=== PATIENT | male | born 1955 | race Two or more races ===

== ENCOUNTER 2021-06-24 13:17 | Inpatient (IN) | payer MEDICARE, OTHER ==
[~2021-06-24] VITALS: Ht 172.7 cm; Wt 80.3 kg
[2021-06-24 13:15] VITALS: BP 166/85
[2021-06-24] MEDS ORDERED: PIPERACILLIN-TAZOB 3.375GM 100 ML IV ONE (13:30)
[2021-06-24] MEDS ORDERED: FUROSEMIDE 40 MG/4 ML VIAL IV ONE (13:30)
[2021-06-24 13:50] VITALS: BP 161/85
[2021-06-24 14:29] LABS: Basophils # (auto) 0.1 10 ^3/uL (0-0.2); Basophils % (auto) 0.7 % (0.0-2.0); Eosinophils # (auto) 0.1 10 ^3/uL (0-0.8); Eosinophils % (auto) 0.8 % (0.0-7.0); Hematocrit 36.6 % (41.0-53.0); Hemoglobin 12.4 g/dL (13.5-17.5); Mean Corpuscular Hemoglobin 32.2 pg (28.0-32.0); Mean Corpuscular Hgb Conc. 33.8 g/dL (32.0-36.0); Mean Corpuscular Volume 95.1 fL (80.0-100.0); Monocytes # (auto) 0.5 10 ^3/uL (0-1.3); Monocytes % (auto) 4.2 % (0.0-12.0); Neutrophils # (auto) 10.2 10 ^3/uL (1.6-8.6); Neutrophils % (auto) 86.3 % (37.0-80.0); Nucleated Red Blood Cells % 0.1 %; Red Blood Cells 3.84 10^6/uL (4.5-5.90); Red Cell Distribution Width 14.3 % (11.8-14.3); White Blood Cell 11.9 10^3/uL (4.4-10.8)
[2021-06-24 14:48] LABS: Albumin 3.7 g/dL (3.4-5.0); Anion Gap 8 (5-15); Blood Urea Nitrogen 33 mg/dL (7-18); Carbon Dioxide 28 mmol/L (21-32); Chloride 100 mmol/L (98-107); Glucose 170 mg/dL (74-106); Sodium 136 mmol/L (136-145)
[2021-06-24 14:54] LABS: Alanine Aminotransferase 35 U/L (16-61); Alkaline Phosphatase 139 U/L (45-117); Aspartate Aminotransferase 39 U/L (15-37); BUN/Creatinine Ratio 3.5; Bilirubin, Total 0.5 mg/dL (0.2-1.0); CRP High Sensitivity 0.43 mg/dL (< 0.3); GFR African American 7 mL/min; GFR Non-African American 6 mL/min; Total Protein 9.3 g/dL (6.4-8.2)
[2021-06-24 15:07] LABS: Potassium 5.7 mmol/L (3.5-5.1)
[2021-06-24] MEDS ORDERED: CALCIUM GLUC 1,000mg/50ml-NS 50 ML IV ONE (15:15)
[2021-06-24] MEDS ORDERED: InsuLIN REG 1unit/0.01ml Soln (100units/ml) IV ONE (15:15)
[2021-06-24] MEDS ORDERED: DEXTROSE (50%) 50ML SYRG IV ONE (15:15)
[2021-06-24] MEDS ORDERED: SODIUM BICARBONATE 8.4 % INJ 50ML VIAL IV ONE (15:15)
[2021-06-24] MEDS ORDERED: MORPHINE SULFATE INJECTION 2 MG/2 ML SYRG IV PRN ×2 (15:45→18:15)
[2021-06-24] MEDS ORDERED: NITROGLYCERIN 0.4 MG SL TAB SL PRN ×2 (15:45→18:15)
[2021-06-24] MEDS: FUROSEMIDE 100 MG/10ML VIAL IV ONE ×2 (15:54→18:25)
[2021-06-24 16:35] LABS: Urine Bacteria NONE SEEN /hpf (None Seen); Urine Blood 1+ /uL (Negative); Urine Mucus FEW (None Seen); Urine Specific Gravity 1.011 (1.001-1.035); Urine WBC 7 /hpf (0 - 3)
[2021-06-24] MEDS ORDERED: LACT10SO3 PO (17:22)
[2021-06-24] MEDS ORDERED: IPRA0.00 NEB (17:22)
[2021-06-24] MEDS ORDERED: FLUT115A INH (17:22)
[2021-06-24] MEDS ORDERED: FLUT1AER6 INH (17:22)
[2021-06-24] MEDS ORDERED: CLOP75TA70 PO (17:22)
[2021-06-24] MEDS ORDERED: FLUT50SP NAS (17:22)
[2021-06-24] MEDS ORDERED: B-COTAB59 PO (17:22)
[2021-06-24] MEDS ORDERED: GING250C PO (17:22)
[2021-06-24] MEDS ORDERED: FERR1TAB17 PO (17:22)
[2021-06-24] MEDS ORDERED: PRE5T PO (17:22)
[2021-06-24] MEDS ORDERED: OMEG1CAP59 PO (17:22)
[2021-06-24] MEDS ORDERED: ASPI-231 PO (17:22)
[2021-06-24] MEDS ORDERED: ALBU108A5 INH (17:22)
[2021-06-24] MEDS ORDERED: POM (17:44)
[2021-06-24] MEDS ORDERED: TURM500C3 PO (17:46)
[2021-06-24] MEDS ORDERED: DEXTROSE (50%) 50ML SYRG IV PRN (18:15)
[2021-06-24] MEDS ORDERED: ALUM & MAG HYDROX-SIMETH LIQ(MAALOX) 30 ML PO PRN (18:15)
[2021-06-24] MEDS ORDERED: LORazepam 0.5 MG TAB PO PRN (18:15)
[2021-06-24] MEDS ORDERED: ALBUTEROL SULF HFA 90MCG INH 200DOSE IN PRN (18:15)
[2021-06-24] MEDS ORDERED: DOCUSATE SOD 100 MG CAP PO PRN (18:15)
[2021-06-24] MEDS ORDERED: ONDANSETRON HCL 4 MG/2 ML VIAL IV PRN (18:15)
[2021-06-24 18:21] VITALS: BP 145/72
[2021-06-24] MEDS ORDERED: LORazepam 2MG/ML-1ML VIAL ONE (18:40)
[2021-06-24] MEDS ORDERED: MORPHINE SULFATE INJECTION 2 MG/2 ML SYRG IV ONE (18:45)
[2021-06-24] MEDS ORDERED: LORazepam 2MG/ML-1ML VIAL IV ONE (18:45)
[2021-06-24] MEDS ORDERED: ALBUTEROL SULF 2.5 MG/0.5ML(0.5%) NEB SOLN ONE (18:52)
[2021-06-24] MEDS ORDERED: IPRATROPIUM BROM 0.5 MG/2.5ML INH SOL ONE (18:52)
[2021-06-24] MEDS ORDERED: ETOMIDATE (2MG/ML) 20ML VIAL IV ONE ×2 (18:59→19:15)
[2021-06-24] MEDS ORDERED: SUCCINYLCHOLINE CHLORIDE 20 MG/ML 10ML VIAL IV ONE ×2 (18:59→19:15)
[2021-06-24] MEDS ORDERED: MIDAZOLAM DRIP 50 mg/50mL 50 ML IV ONE (18:59)
[2021-06-24] MEDS ORDERED: ENOXAPARIN SOD 60 MG/0.6 ML SYRINGE SC ONE (19:00)
[2021-06-24] MEDS ORDERED: ALBUTEROL SULF 2.5 MG/0.5ML(0.5%) NEB SOLN NEB ONE (19:00)
[2021-06-24 19:03] LABS: Cholesterol 182 mg/dL (< 200)
[2021-06-24 19:06] LABS: Calcium 7.8 mg/dL (8.5-10.1); HDL Cholesterol 82 mg/dL (40-59); LDL Cholesterol 79 mg/dL (< 100); Potassium 5.5 mmol/L (3.5-5.1); Triglycerides 120 mg/dL (< 150)
[2021-06-24] MEDS: MIDAZOLAM DRIP 50 mg/50mL 50 ML IV SCH (19:06)
[2021-06-24 19:09] LABS: BUN/Creatinine Ratio 3.7; Bilirubin, Total 0.5 mg/dL (0.2-1.0)
[2021-06-24 19:11] LABS: Alcohol, Urine < 3.0 mg/dL (0-10); Amphetamine Screen, Urine NEGATIVE (NEGATIVE); Barbiturate Scree,Urine NEGATIVE (NEGATIVE); Benzodiazephine Screen, Urine NEGATIVE (NEGATIVE); Cannabinoid Screen, Urine NEGATIVE (NEGATIVE); Cocaine Screen, Urine NEGATIVE (NEGATIVE); Opiate Scree,Urine NEGATIVE (NEGATIVE); Phencyclidine Screen, Urine NEGATIVE (NEGATIVE)
[2021-06-24 19:15] VITALS: BP 226/139
[2021-06-24 19:18] LABS: Thyroid Stimulating Hormone 1.23 uIU/mL (0.358-3.74)
[2021-06-24] MEDS ORDERED: fentaNYL Drip 2500mCg/250mlNS 250 ML IV ONE (19:20)
[2021-06-24] MEDS: fentaNYL Drip 2500mCg/250mlNS 250 ML IV SCH (19:39)
[2021-06-24 19:54] LABS: Basophils # (auto) 0.1 10 ^3/uL (0-0.2); Basophils % (auto) 0.6 % (0.0-2.0); Eosinophils # (auto) 0.1 10 ^3/uL (0-0.8); Eosinophils % (auto) 0.5 % (0.0-7.0); Hematocrit 37.2 % (41.0-53.0); Hemoglobin 12.4 g/dL (13.5-17.5); Lymphocytes # (auto) 0.7 10 ^3/uL (0.4-5.4); Lymphocytes % (auto) 5.8 % (10.0-50.0); Mean Corpuscular Hgb Conc. 33.4 g/dL (32.0-36.0); Mean Corpuscular Volume 95.7 fL (80.0-100.0); Monocytes # (auto) 0.6 10 ^3/uL (0-1.3); Monocytes % (auto) 5.1 % (0.0-12.0); Neutrophils # (auto) 10.5 10 ^3/uL (1.6-8.6); Red Blood Cells 3.89 10^6/uL (4.5-5.90); Red Cell Distribution Width 13.9 % (11.8-14.3); White Blood Cell 11.9 10^3/uL (4.4-10.8)
[2021-06-24] MEDS: MORPHINE SULFATE INJECTION 2 MG/2 ML SYRG IV PRN (20:11)
[2021-06-24 20:15] LABS: Lactic Acid w/Reflex 2.8 mmol/L (0.4-2.0)
[2021-06-24 21:45] VITALS: BP 117/58
[2021-06-24] MEDS ORDERED: IPRATROPIUM BROMIDE HFA AER IN SCH (22:00)
[2021-06-24] MEDS: InsuLIN REG 1unit/0.01ml Soln (100units/ml) SC SCH (22:00)
[2021-06-24] MEDS: FLORASTOR (S. BOULARDII) 250 MG CAP PO SCH (22:00)
[2021-06-24] MEDS ORDERED: BUDESONIDE (INHALATION) 180 MCG IH IN SCH (22:00)
[2021-06-24] MEDS: ACCU-CHEK COMFORT CURVE STRIP VI SCH (22:15)
[2021-06-24] MEDS: DOXYCYCLINE 100MG/250ML 250 ML IV SCH (22:16)
[2021-06-25] VITALS (83 sets, daily range): BP systolic 83–135; BP diastolic 45–70
[2021-06-25] MEDS ORDERED: SODIUM CHL 0.9% 1000 ML BAG XX ONE (00:15)
[2021-06-25] MEDS: MIDAZOLAM DRIP 50 mg/50mL 50 ML IV SCH (04:51)
[2021-06-25] MEDS: InsuLIN REG 1unit/0.01ml Soln (100units/ml) SC SCH ×4 (07:00→22:00)
[2021-06-25] MEDS: ACCU-CHEK COMFORT CURVE STRIP VI SCH ×4 (07:00→22:45)
[2021-06-25 08:22] LABS: Basophils # (auto) 0.1 10 ^3/uL (0-0.2); Basophils % (auto) 1.1 % (0.0-2.0); Eosinophils # (auto) 0.1 10 ^3/uL (0-0.8); Eosinophils % (auto) 0.9 % (0.0-7.0); Hematocrit 33.8 % (41.0-53.0); Hemoglobin 11.4 g/dL (13.5-17.5); Lymphocytes # (auto) 0.9 10 ^3/uL (0.4-5.4); Lymphocytes % (auto) 10.5 % (10.0-50.0); Mean Corpuscular Hemoglobin 32.5 pg (28.0-32.0); Mean Corpuscular Hgb Conc. 33.9 g/dL (32.0-36.0); Monocytes # (auto) 0.8 10 ^3/uL (0-1.3); Monocytes % (auto) 9.9 % (0.0-12.0); Neutrophils # (auto) 6.5 10 ^3/uL (1.6-8.6); Neutrophils % (auto) 77.6 % (37.0-80.0); Nucleated Red Blood Cells % 0.1 %; Red Blood Cells 3.52 10^6/uL (4.5-5.90); Red Cell Distribution Width 14.1 % (11.8-14.3); White Blood Cell 8.4 10^3/uL (4.4-10.8)
[2021-06-25 08:32] LABS: Albumin 2.9 g/dL (3.4-5.0); Calcium 7.9 mg/dL (8.5-10.1); Magnesium 3.3 mg/dL (1.6-2.6); Potassium 4.8 mmol/L (3.5-5.1)
[2021-06-25 08:37] LABS: BUN/Creatinine Ratio 3.1; Bilirubin, Total 0.6 mg/dL (0.2-1.0); Phosphorus 4.3 mg/dL (2.5-4.90); Total Protein 8.1 g/dL (6.4-8.2)
[2021-06-25 08:41] LABS: INR 1.08 (0.9-1.15); Partial Thromboplastin Time 26.5 sec (23.0-31.2)
[2021-06-25] MEDS: FLORASTOR (S. BOULARDII) 250 MG CAP PO SCH ×2 (09:45→22:43)
[2021-06-25] MEDS: fentaNYL Drip 2500mCg/250mlNS 250 ML IV SCH (09:45)
[2021-06-25] MEDS: DOXYCYCLINE 100MG/250ML 250 ML IV SCH ×2 (09:53→22:43)
[2021-06-25] MEDS ORDERED: ENOXAPARIN SOD 30 MG/0.3 ML SYRINGE SC SCH (10:00)
[2021-06-25] MEDS ORDERED: ASCORBIC ACID 1,000 MG TAB PO SCH (10:00)
[2021-06-25] MEDS ORDERED: ENOXAPARIN SOD 40 MG/0.4 ML SYRINGE SC SCH (10:00)
[2021-06-25] MEDS ORDERED: CHOLECALCIFEROL (VITD3) 2,000 UNIT CAP/TAB PO SCH (10:00)
[2021-06-25] MEDS ORDERED: ZINC SULFATE 220mg CAP or TAB PO SCH (10:00)
[2021-06-25] MEDS: HEPARIN SODIUM (PORCINE) 5000 UNITS/ML 1ML VIAL SC SCH ×2 (10:54→22:44)
[2021-06-25] MEDS: PROPOFOL 100 ML IV SCH ×2 (14:00→22:00)
[2021-06-26] VITALS (97 sets, daily range): BP systolic 98–197; BP diastolic 47–84
[2021-06-26] MEDS: ACCU-CHEK COMFORT CURVE STRIP VI SCH ×4 (07:00→21:43)
[2021-06-26] MEDS: InsuLIN REG 1unit/0.01ml Soln (100units/ml) SC SCH ×4 (07:00→21:43)
[2021-06-26] MEDS: HEPARIN SODIUM (PORCINE) 5000 UNITS/ML 1ML VIAL SC SCH ×2 (10:08→21:09)
[2021-06-26] MEDS: DOXYCYCLINE 100MG/250ML 250 ML IV SCH ×2 (10:09→21:07)
[2021-06-26] MEDS: FLORASTOR (S. BOULARDII) 250 MG CAP PO SCH ×2 (10:10→21:08)
[2021-06-26 10:25] LABS: Basophils # (auto) 0.1 10 ^3/uL (0-0.2); Basophils % (auto) 1.2 % (0.0-2.0); Eosinophils # (auto) 0.1 10 ^3/uL (0-0.8); Eosinophils % (auto) 0.8 % (0.0-7.0); Hematocrit 36.5 % (41.0-53.0); Hemoglobin 12.4 g/dL (13.5-17.5); Lymphocytes # (auto) 1.2 10 ^3/uL (0.4-5.4); Lymphocytes % (auto) 13.1 % (10.0-50.0); Mean Corpuscular Hemoglobin 32.3 pg (28.0-32.0); Mean Corpuscular Hgb Conc. 33.9 g/dL (32.0-36.0); Mean Corpuscular Volume 95.2 fL (80.0-100.0); Monocytes # (auto) 1.3 10 ^3/uL (0-1.3); Monocytes % (auto) 15.1 % (0.0-12.0); Neutrophils # (auto) 6.2 10 ^3/uL (1.6-8.6); Neutrophils % (auto) 69.8 % (37.0-80.0); Nucleated Red Blood Cells % 0.1 %; Red Blood Cells 3.83 10^6/uL (4.5-5.90); Red Cell Distribution Width 14.3 % (11.8-14.3); White Blood Cell 8.9 10^3/uL (4.4-10.8)
[2021-06-26 10:41] LABS: Albumin 2.5 g/dL (3.4-5.0); Calcium 8.3 mg/dL (8.5-10.1); Potassium 5.5 mmol/L (3.5-5.1)
[2021-06-26 10:45] LABS: BUN/Creatinine Ratio 3.4; Bilirubin, Total 0.6 mg/dL (0.2-1.0); Total Protein 7.6 g/dL (6.4-8.2)
[2021-06-26] MEDS: PROPOFOL 100 ML IV SCH (11:41)
[2021-06-26] MEDS: IPRATROPIUM BROM 0.5 MG/2.5ML INH SOL NEB PRN (18:17)
[2021-06-26] MEDS: ALBUTEROL SULF 2.5 MG/0.5ML(0.5%) NEB SOLN NEB PRN (18:17)
[2021-06-26] MEDS: MIDAZOLAM DRIP 50 mg/50mL 50 ML IV SCH (19:15)
[2021-06-26] MEDS: fentaNYL Drip 2500mCg/250mlNS 250 ML IV SCH (19:30)
[2021-06-26] MEDS: hydrALAZINE HCL 20 MG/ML VL IV PRN ×2 (20:12→23:51)
[2021-06-27] VITALS (70 sets, daily range): BP systolic 83–174; BP diastolic 20–102
[2021-06-27] MEDS: IPRATROPIUM BROM 0.5 MG/2.5ML INH SOL NEB PRN ×2 (00:11→18:27)
[2021-06-27] MEDS: ALBUTEROL SULF 2.5 MG/0.5ML(0.5%) NEB SOLN NEB PRN ×2 (00:11→18:27)
[2021-06-27] MEDS: hydrALAZINE HCL 20 MG/ML VL IV PRN (04:55)
[2021-06-27] MEDS: ACCU-CHEK COMFORT CURVE STRIP VI SCH ×4 (06:28→22:25)
[2021-06-27] MEDS: InsuLIN REG 1unit/0.01ml Soln (100units/ml) SC SCH ×4 (06:28→23:03)
[2021-06-27 06:38] LABS: Basophils # (auto) 0.1 10 ^3/uL (0-0.2); Basophils % (auto) 0.7 % (0.0-2.0); Eosinophils # (auto) 0 10 ^3/uL (0-0.8); Eosinophils % (auto) 0.1 % (0.0-7.0); Hematocrit 43.9 % (41.0-53.0); Hemoglobin 14.8 g/dL (13.5-17.5); Lymphocytes # (auto) 0.8 10 ^3/uL (0.4-5.4); Lymphocytes % (auto) 6.6 % (10.0-50.0); Mean Corpuscular Hemoglobin 32.6 pg (28.0-32.0); Mean Corpuscular Hgb Conc. 33.8 g/dL (32.0-36.0); Mean Corpuscular Volume 96.6 fL (80.0-100.0); Monocytes # (auto) 1.4 10 ^3/uL (0-1.3); Monocytes % (auto) 11.5 % (0.0-12.0); Neutrophils % (auto) 81.1 % (37.0-80.0); Nucleated Red Blood Cells % 0.1 %; Red Blood Cells 4.55 10^6/uL (4.5-5.90); Red Cell Distribution Width 14.1 % (11.8-14.3); White Blood Cell 12.3 10^3/uL (4.4-10.8)
[2021-06-27 06:58] LABS: Calcium 9.3 mg/dL (8.5-10.1)
[2021-06-27] MEDS ORDERED: SODIUM CHL 0.9% 1000 ML BAG XX ONE (07:00)
[2021-06-27 07:02] LABS: Albumin 3.3 g/dL (3.4-5.0); BUN/Creatinine Ratio 4.1; Total Protein 8.8 g/dL (6.4-8.2)
[2021-06-27 07:42] LABS: Potassium 5.6 mmol/L (3.5-5.1)
[2021-06-27] MEDS: PROPOFOL 100 ML IV SCH ×4 (07:58→22:36)
[2021-06-27] MEDS: FLORASTOR (S. BOULARDII) 250 MG CAP PO SCH ×2 (09:19→22:00)
[2021-06-27] MEDS: DOXYCYCLINE 100MG/250ML 250 ML IV SCH ×2 (09:50→22:24)
[2021-06-27] MEDS: HEPARIN SODIUM (PORCINE) 5000 UNITS/ML 1ML VIAL SC SCH ×3 (09:51→20:54)
[2021-06-27] MEDS ORDERED: NOREPINEPHRINE 8 MG/250ML KIT 250 ML IV ONE (10:45)
[2021-06-27] MEDS ORDERED: PANTOPRAZOLE 40 MG/10 ML VIAL INJ IV ONE (11:00)
[2021-06-27] MEDS: NOREPINEPHRINE 8 MG/250ML KIT 250 ML IV SCH (11:40)
[2021-06-27] MEDS ORDERED: DEXTROSE (50%) 50ML SYRG IV ONE (11:45)
[2021-06-27] MEDS ORDERED: CALCIUM GLUC 1,000mg/50ml-NS 50 ML IV ONE (11:45)
[2021-06-27] MEDS ORDERED: InsuLIN REG 1unit/0.01ml Soln (100units/ml) IV ONE (11:45)
[2021-06-27] MEDS ORDERED: CEFEPIME 1 GM in SODIUM CHL 0.9% 50 ML IV ONE (14:00)
[2021-06-27] MEDS ORDERED: LIDOCAINE 1% (LOCAL ANESTH.) PF 5ml SDV ID ONE (15:30)
[2021-06-27] MEDS: MIDAZOLAM DRIP 50 mg/50mL 50 ML IV SCH (19:15)
[2021-06-27] MEDS: fentaNYL Drip 2500mCg/250mlNS 250 ML IV SCH (19:30)
[2021-06-27] MEDS ORDERED: EPOETIN ALFA-EPBX 4,000 UNIT/ML VIAL SC ONE (21:00)
[2021-06-27] MEDS: SODIUM CHLOR 0.9% PF (SALINE LOCK) 10ML VIAL/SYR IV SCH (22:22)
[2021-06-27] MEDS: PANTOPRAZOLE 40 MG/10 ML VIAL INJ IV SCH (22:22)
[2021-06-28] VITALS (108 sets, daily range): BP systolic 90–173; BP diastolic 24–68
[2021-06-28] MEDS: NOREPINEPHRINE 8 MG/250ML KIT 250 ML IV SCH ×2 (01:28→11:01)
[2021-06-28 05:10] LABS: Albumin 2.5 g/dL (3.4-5.0); Calcium 8.8 mg/dL (8.5-10.1); Potassium 4.7 mmol/L (3.5-5.1)
[2021-06-28 05:13] LABS: BUN/Creatinine Ratio 4.3; Bilirubin, Total 0.8 mg/dL (0.2-1.0); Total Protein 7.9 g/dL (6.4-8.2)
[2021-06-28 05:25] LABS: Hematocrit 37.5 % (41.0-53.0); Hemoglobin 12.6 g/dL (13.5-17.5); Mean Corpuscular Hemoglobin 31.6 pg (28.0-32.0); Mean Corpuscular Hgb Conc. 33.4 g/dL (32.0-36.0); Mean Corpuscular Volume 94.6 fL (80.0-100.0); Red Blood Cells 3.97 10^6/uL (4.5-5.90); Red Cell Distribution Width 14.2 % (11.8-14.3); White Blood Cell 11.9 10^3/uL (4.4-10.8)
[2021-06-28 05:27] LABS: Band Neutrophils % (manual) 0; Basophils % (manual) 0 (0.0-2.0); Blast Cells 0; Eosinophils % (manual) 0 (0-7); Metamyelocytes % 0; Myelocytes % 0; Promyelocytes % 0; Reactive Lymphocytes 0
[2021-06-28] MEDS: ACCU-CHEK COMFORT CURVE STRIP VI SCH ×4 (06:31→22:00)
[2021-06-28] MEDS: InsuLIN REG 1unit/0.01ml Soln (100units/ml) SC SCH ×4 (06:31→22:00)
[2021-06-28 06:48] LABS: Lymphocytes % (manual) 24 (10.0-50.0); Monocytes % (manual) 14 (0-12)
[2021-06-28 08:01] LABS: INR 1.08 (0.9-1.15); Partial Thromboplastin Time 26.8 sec (23.0-31.2)
[2021-06-28] MEDS: PANTOPRAZOLE 40 MG/10 ML VIAL INJ IV SCH ×2 (10:17→22:00)
[2021-06-28] MEDS: SODIUM CHLOR 0.9% PF (SALINE LOCK) 10ML VIAL/SYR IV SCH ×2 (10:18→22:00)
[2021-06-28] MEDS: PROPOFOL 100 ML IV SCH ×2 (10:22→14:42)
[2021-06-28] MEDS: CEFEPIME 0.5 GM in SODIUM CHL 0.9% 50 ML IV SCH (11:35)
[2021-06-28] MEDS ORDERED: HEPARIN 1,000 UNITS/ml 1ML VIAL ONE (17:14)
[2021-06-28] MEDS: MIDAZOLAM DRIP 50 mg/50mL 50 ML IV SCH (19:15)
[2021-06-28] MEDS: fentaNYL Drip 2500mCg/250mlNS 250 ML IV SCH (19:30)
[2021-06-29] VITALS (70 sets, daily range): BP systolic 93–164; BP diastolic 26–79
[2021-06-29] MEDS: ACCU-CHEK COMFORT CURVE STRIP VI SCH ×3 (07:00→17:11)
[2021-06-29] MEDS: InsuLIN REG 1unit/0.01ml Soln (100units/ml) SC SCH ×4 (07:00→22:00)
[2021-06-29] MEDS ORDERED: SODIUM CHL 0.9% 1000 ML BAG XX ONE (07:00)
[2021-06-29 08:16] LABS: Basophils # (auto) 0.1 10 ^3/uL (0-0.2); Eosinophils # (auto) 0.3 10 ^3/uL (0-0.8); Eosinophils % (auto) 2.4 % (0.0-7.0); Hematocrit 36.6 % (41.0-53.0); Hemoglobin 12.5 g/dL (13.5-17.5); Lymphocytes # (auto) 1.4 10 ^3/uL (0.4-5.4); Lymphocytes % (auto) 13.4 % (10.0-50.0); Mean Corpuscular Hemoglobin 31.9 pg (28.0-32.0); Mean Corpuscular Volume 93.6 fL (80.0-100.0); Monocytes # (auto) 1.7 10 ^3/uL (0-1.3); Neutrophils # (auto) 6.9 10 ^3/uL (1.6-8.6); Neutrophils % (auto) 67.2 % (37.0-80.0); Red Blood Cells 3.91 10^6/uL (4.5-5.90); Red Cell Distribution Width 13.8 % (11.8-14.3); White Blood Cell 10.3 10^3/uL (4.4-10.8)
[2021-06-29 08:33] LABS: BUN/Creatinine Ratio 5.4; Calcium 9.1 mg/dL (8.5-10.1); Potassium 5.3 mmol/L (3.5-5.1)
[2021-06-29] MEDS: NOREPINEPHRINE 8 MG/250ML KIT 250 ML IV SCH (10:20)
[2021-06-29] MEDS: PANTOPRAZOLE 40 MG/10 ML VIAL INJ IV SCH (12:59)
[2021-06-29] MEDS: CEFEPIME 0.5 GM in SODIUM CHL 0.9% 50 ML IV SCH (13:11)
[2021-06-29] MEDS: SODIUM CHLOR 0.9% PF (SALINE LOCK) 10ML VIAL/SYR IV SCH (13:12)
[2021-06-29] MEDS ORDERED: SODIUM CHLORIDE 0.9% 500 ML IV ONE (14:00)
[2021-06-29] MEDS ORDERED: Nepro With Carb Steady 1 Liter Bottle GT SCH (15:30)
[2021-06-29] MEDS: MIDAZOLAM DRIP 50 mg/50mL 50 ML IV SCH (19:15)
[2021-06-29] MEDS: fentaNYL Drip 2500mCg/250mlNS 250 ML IV SCH (19:30)
[2021-06-30] VITALS (12 sets, daily range): BP systolic 102–177; BP diastolic 35–68
[2021-06-30] MEDS: ACCU-CHEK COMFORT CURVE STRIP VI SCH ×4 (07:00→17:41)
[2021-06-30] MEDS: InsuLIN REG 1unit/0.01ml Soln (100units/ml) SC SCH ×3 (07:00→17:00)
[2021-06-30] MEDS: hydrALAZINE HCL 20 MG/ML VL IV PRN ×3 (09:50→23:39)
[2021-06-30 10:37] LABS: Hematocrit 39.2 % (41.0-53.0); Hemoglobin 13.3 g/dL (13.5-17.5); Mean Corpuscular Hemoglobin 32.9 pg (28.0-32.0); Mean Corpuscular Volume 96.8 fL (80.0-100.0); Red Blood Cells 4.05 10^6/uL (4.5-5.90); Red Cell Distribution Width 14.5 % (11.8-14.3); White Blood Cell 9.9 10^3/uL (4.4-10.8)
[2021-06-30 10:41] LABS: Albumin 2.6 g/dL (3.4-5.0); Calcium 9.6 mg/dL (8.5-10.1)
[2021-06-30 10:46] LABS: BUN/Creatinine Ratio 5.9; Bilirubin, Total 1.3 mg/dL (0.2-1.0)
[2021-06-30 10:56] LABS: Basophils % (manual) 0 (0.0-2.0); Blast Cells 0; Metamyelocytes % 0; Myelocytes % 0; Promyelocytes % 0; Reactive Lymphocytes 0
[2021-06-30 11:41] LABS: Band Neutrophils % (manual) 2; Eosinophils % (manual) 1 (0-7); Lymphocytes % (manual) 32 (10.0-50.0); Monocytes % (manual) 5 (0-12)
[2021-06-30] MEDS: NOREPINEPHRINE 8 MG/250ML KIT 250 ML IV SCH (11:45)
[2021-06-30] MEDS: CEFEPIME 0.5 GM in SODIUM CHL 0.9% 50 ML IV SCH (12:00)
[2021-06-30] MEDS: PROPOFOL 100 ML IV SCH (12:45)
[2021-06-30] MEDS: PANTOPRAZOLE 40 MG/10 ML VIAL INJ IV SCH ×2 (14:32→17:41)
[2021-06-30] MEDS: ALBUTEROL SULF 2.5 MG/0.5ML(0.5%) NEB SOLN NEB PRN (18:20)
[2021-06-30] MEDS: IPRATROPIUM BROM 0.5 MG/2.5ML INH SOL NEB PRN (18:20)
[2021-06-30] MEDS ORDERED: EPINEPHrine HCL 0.5 ML NEB NEB ONE (18:30)
[2021-06-30] MEDS ORDERED: EPINEPHrine HCL 0.5 ML NEB ONE (18:32)
[2021-06-30] MEDS: MIDAZOLAM DRIP 50 mg/50mL 50 ML IV SCH (19:15)
[2021-06-30] MEDS: MORPHINE SULFATE INJECTION 2 MG/2 ML SYRG IV PRN (19:54)
[2021-06-30] MEDS: SODIUM CHLOR 0.9% PF (SALINE LOCK) 10ML VIAL/SYR IV SCH (22:00)
[2021-07-01] VITALS (35 sets, daily range): BP systolic 100–192; BP diastolic 32–78
[2021-07-01] MEDS: PANTOPRAZOLE 40 MG/10 ML VIAL INJ IV SCH ×3 (00:08→21:45)
[2021-07-01] MEDS: ACCU-CHEK COMFORT CURVE STRIP VI SCH ×5 (00:08→22:00)
[2021-07-01] MEDS: SODIUM CHLOR 0.9% PF (SALINE LOCK) 10ML VIAL/SYR IV SCH ×3 (00:08→22:00)
[2021-07-01] MEDS: InsuLIN REG 1unit/0.01ml Soln (100units/ml) SC SCH ×5 (00:09→22:00)
[2021-07-01] MEDS: ALBUTEROL SULF 2.5 MG/0.5ML(0.5%) NEB SOLN NEB PRN (00:15)
[2021-07-01] MEDS: IPRATROPIUM BROM 0.5 MG/2.5ML INH SOL NEB PRN (00:15)
[2021-07-01] MEDS: MORPHINE SULFATE INJECTION 2 MG/2 ML SYRG IV PRN (02:44)
[2021-07-01] MEDS: hydrALAZINE HCL 20 MG/ML VL IV PRN ×3 (02:45→23:32)
[2021-07-01 04:34] LABS: Basophils # (auto) 0.1 10 ^3/uL (0-0.2); Basophils % (auto) 0.7 % (0.0-2.0); Eosinophils # (auto) 0 10 ^3/uL (0-0.8); Eosinophils % (auto) 0.4 % (0.0-7.0); Hematocrit 39.2 % (41.0-53.0); Hemoglobin 13.2 g/dL (13.5-17.5); Lymphocytes % (auto) 8.5 % (10.0-50.0); Mean Corpuscular Hemoglobin 32.1 pg (28.0-32.0); Mean Corpuscular Hgb Conc. 33.6 g/dL (32.0-36.0); Mean Corpuscular Volume 95.5 fL (80.0-100.0); Monocytes % (auto) 17.5 % (0.0-12.0); Neutrophils # (auto) 8.2 10 ^3/uL (1.6-8.6); Neutrophils % (auto) 72.9 % (37.0-80.0); Red Cell Distribution Width 14.1 % (11.8-14.3); White Blood Cell 11.3 10^3/uL (4.4-10.8)
[2021-07-01 05:11] LABS: Albumin 2.7 g/dL (3.4-5.0); Calcium 9.9 mg/dL (8.5-10.1); Potassium 5.4 mmol/L (3.5-5.1)
[2021-07-01 05:16] LABS: BUN/Creatinine Ratio 6.8; Bilirubin, Total 1.2 mg/dL (0.2-1.0); Total Protein 8.9 g/dL (6.4-8.2)
[2021-07-01] MEDS: IPRATROPIUM BROM 0.5 MG/2.5ML INH SOL NEB SCH ×3 (06:19→18:48)
[2021-07-01] MEDS: ALBUTEROL SULF 2.5 MG/0.5ML(0.5%) NEB SOLN NEB SCH ×3 (06:19→18:48)
[2021-07-01] MEDS ORDERED: SODIUM CHL 0.9% 1000 ML BAG XX ONE (07:00)
[2021-07-01] MEDS ORDERED: METOPROLOL TARTRATE 1MG/1ML-5ML VIAL IV ONE ×3 (09:54→15:30)
[2021-07-01] MEDS: METOPROLOL TARTRATE 50 MG TAB PO SCH ×2 (10:30→21:46)
[2021-07-01] MEDS: NOREPINEPHRINE 8 MG/250ML KIT 250 ML IV SCH (11:45)
[2021-07-01] MEDS: PROPOFOL 100 ML IV SCH (12:45)
[2021-07-01] MEDS: ALBUMIN 25% 100 ML IV SCH ×2 (14:45→21:47)
[2021-07-01] MEDS: CEFEPIME 0.5 GM in SODIUM CHL 0.9% 50 ML IV SCH (15:07)
[2021-07-01] MEDS: MIDAZOLAM DRIP 50 mg/50mL 50 ML IV SCH (19:15)
[2021-07-02] VITALS (13 sets, daily range): BP systolic 111–171; BP diastolic 44–78
[2021-07-02] MEDS: IPRATROPIUM BROM 0.5 MG/2.5ML INH SOL NEB SCH ×4 (00:38→18:04)
[2021-07-02] MEDS: ALBUTEROL SULF 2.5 MG/0.5ML(0.5%) NEB SOLN NEB SCH ×4 (00:38→18:04)
[2021-07-02 04:34] LABS: Basophils # (auto) 0.1 10 ^3/uL (0-0.2); Basophils % (auto) 0.8 % (0.0-2.0); Eosinophils # (auto) 0.1 10 ^3/uL (0-0.8); Eosinophils % (auto) 0.9 % (0.0-7.0); Hematocrit 34.7 % (41.0-53.0); Hemoglobin 11.5 g/dL (13.5-17.5); Lymphocytes # (auto) 0.6 10 ^3/uL (0.4-5.4); Lymphocytes % (auto) 6.2 % (10.0-50.0); Mean Corpuscular Hemoglobin 31.7 pg (28.0-32.0); Monocytes # (auto) 1.4 10 ^3/uL (0-1.3); Monocytes % (auto) 14.5 % (0.0-12.0); Neutrophils # (auto) 7.7 10 ^3/uL (1.6-8.6); Neutrophils % (auto) 77.6 % (37.0-80.0); Nucleated Red Blood Cells % 0.1 %; Red Blood Cells 3.62 10^6/uL (4.5-5.90); Red Cell Distribution Width 13.8 % (11.8-14.3); White Blood Cell 9.9 10^3/uL (4.4-10.8)
[2021-07-02 05:04] LABS: Potassium 4.9 mmol/L (3.5-5.1)
[2021-07-02 05:14] LABS: Albumin 2.8 g/dL (3.4-5.0); BUN/Creatinine Ratio 7.1; Calcium 9.1 mg/dL (8.5-10.1)
[2021-07-02 05:16] LABS: Bilirubin, Total 1.1 mg/dL (0.2-1.0); Total Protein 7.7 g/dL (6.4-8.2)
[2021-07-02] MEDS: ALBUMIN 25% 100 ML IV SCH (06:21)
[2021-07-02] MEDS: InsuLIN REG 1unit/0.01ml Soln (100units/ml) SC SCH ×4 (07:00→21:09)
[2021-07-02] MEDS: ACCU-CHEK COMFORT CURVE STRIP VI SCH ×4 (07:27→21:09)
[2021-07-02] MEDS: METOPROLOL TARTRATE 50 MG TAB PO SCH ×2 (10:05→21:15)
[2021-07-02] MEDS: SODIUM CHLOR 0.9% PF (SALINE LOCK) 10ML VIAL/SYR IV SCH ×2 (10:05→21:15)
[2021-07-02] MEDS: PANTOPRAZOLE 40 MG/10 ML VIAL INJ IV SCH ×2 (10:05→21:14)
[2021-07-02] MEDS: ASPirin 81 mg TAB PO SCH (10:06)
[2021-07-02] MEDS: CEFEPIME 0.5 GM in SODIUM CHL 0.9% 50 ML IV SCH (14:10)
[2021-07-02] MEDS: AURYXIA 210MG PO SCH (17:42)
[2021-07-02] MEDS: HYDROcodone-ACET 5/325MG TAB PO PRN (21:15)
[2021-07-02] MEDS: ATORVASTATIN 20 MG TAB PO SCH (21:15)
[2021-07-02] MEDS: MORPHINE SULFATE INJECTION 2 MG/2 ML SYRG IV PRN (23:14)
[2021-07-03] VITALS (7 sets, daily range): BP systolic 102–149; BP diastolic 51–84
[2021-07-03] MEDS: IPRATROPIUM BROM 0.5 MG/2.5ML INH SOL NEB SCH ×4 (00:16→18:24)
[2021-07-03] MEDS: ALBUTEROL SULF 2.5 MG/0.5ML(0.5%) NEB SOLN NEB SCH ×4 (00:16→18:24)
[2021-07-03] MEDS: MORPHINE SULFATE INJECTION 2 MG/2 ML SYRG IV PRN ×3 (03:39→15:00)
[2021-07-03 05:44] LABS: Basophils # (auto) 0.1 10 ^3/uL (0-0.2); Basophils % (auto) 0.7 % (0.0-2.0); Eosinophils # (auto) 0.2 10 ^3/uL (0-0.8); Eosinophils % (auto) 1.7 % (0.0-7.0); Hematocrit 35.1 % (41.0-53.0); Hemoglobin 11.9 g/dL (13.5-17.5); Lymphocytes # (auto) 1.1 10 ^3/uL (0.4-5.4); Lymphocytes % (auto) 11.8 % (10.0-50.0); Mean Corpuscular Hemoglobin 32.4 pg (28.0-32.0); Mean Corpuscular Hgb Conc. 33.9 g/dL (32.0-36.0); Mean Corpuscular Volume 95.5 fL (80.0-100.0); Monocytes # (auto) 1.5 10 ^3/uL (0-1.3); Monocytes % (auto) 16.6 % (0.0-12.0); Neutrophils # (auto) 6.5 10 ^3/uL (1.6-8.6); Neutrophils % (auto) 69.2 % (37.0-80.0); Nucleated Red Blood Cells % 0.1 %; Red Blood Cells 3.68 10^6/uL (4.5-5.90); White Blood Cell 9.3 10^3/uL (4.4-10.8)
[2021-07-03 06:02] LABS: Potassium 4.6 mmol/L (3.5-5.1)
[2021-07-03] MEDS: InsuLIN REG 1unit/0.01ml Soln (100units/ml) SC SCH ×4 (06:03→21:55)
[2021-07-03] MEDS: ACCU-CHEK COMFORT CURVE STRIP VI SCH ×4 (06:03→21:55)
[2021-07-03 06:15] LABS: BUN/Creatinine Ratio 7.8; Bilirubin, Total 0.9 mg/dL (0.2-1.0); Calcium 9.7 mg/dL (8.5-10.1); Total Protein 8.2 g/dL (6.4-8.2)
[2021-07-03] MEDS: AURYXIA 210MG PO SCH ×3 (08:40→18:03)
[2021-07-03] MEDS: PANTOPRAZOLE 40 MG/10 ML VIAL INJ IV SCH ×2 (08:54→21:48)
[2021-07-03] MEDS: ASPirin 81 mg TAB PO SCH (08:57)
[2021-07-03] MEDS: METOPROLOL TARTRATE 50 MG TAB PO SCH ×2 (09:08→21:49)
[2021-07-03] MEDS: SODIUM CHLOR 0.9% PF (SALINE LOCK) 10ML VIAL/SYR IV SCH ×2 (09:12→21:49)
[2021-07-03] MEDS ORDERED: diphenhdrAMINE HCL 50 MG/1 ML VL IV PRN (10:30)
[2021-07-03] MEDS: HYDROcodone-ACET 5/325MG TAB PO PRN (12:58)
[2021-07-03] MEDS: CEFEPIME 0.5 GM in SODIUM CHL 0.9% 50 ML IV SCH (14:50)
[2021-07-03 20:32] LABS: Urine Bacteria NONE SEEN /hpf (None Seen); Urine Blood TRACE /uL (Negative); Urine Specific Gravity 1.012 (1.001-1.035); Urine WBC 2 /hpf (0 - 3)
[2021-07-03] MEDS: ATORVASTATIN 20 MG TAB PO SCH (21:49)
[2021-07-03] MEDS ORDERED: predniSONE 20 MG TAB PO ONE (22:00)
[2021-07-04] MEDS: ALBUTEROL SULF 2.5 MG/0.5ML(0.5%) NEB SOLN NEB SCH ×4 (00:24→18:59)
[2021-07-04] MEDS: IPRATROPIUM BROM 0.5 MG/2.5ML INH SOL NEB SCH ×4 (00:24→18:58)
[2021-07-04 05:00] VITALS: BP 131/111
[2021-07-04] MEDS ORDERED: predniSONE 20 MG TAB PO ONE ×2 (05:00→20:00)
[2021-07-04 06:00] LABS: Hemoglobin 11.3 g/dL (13.5-17.5); Mean Corpuscular Hemoglobin 31.8 pg (28.0-32.0); Mean Corpuscular Hgb Conc. 34.1 g/dL (32.0-36.0); Mean Corpuscular Volume 93.3 fL (80.0-100.0); Red Blood Cells 3.54 10^6/uL (4.5-5.90); Red Cell Distribution Width 13.7 % (11.8-14.3); White Blood Cell 10.4 10^3/uL (4.4-10.8)
[2021-07-04] MEDS: ACCU-CHEK COMFORT CURVE STRIP VI SCH ×4 (06:16→21:14)
[2021-07-04] MEDS: InsuLIN REG 1unit/0.01ml Soln (100units/ml) SC SCH ×4 (06:16→21:14)
[2021-07-04 06:20] LABS: INR 1.08 (0.9-1.15)
[2021-07-04 06:33] LABS: Band Neutrophils % (manual) 0; Basophils % (manual) 0 (0.0-2.0); Blast Cells 0; Metamyelocytes % 0; Myelocytes % 0; Promyelocytes % 0; Reactive Lymphocytes 0
[2021-07-04] MEDS ORDERED: SODIUM CHL 0.9% 1000 ML BAG XX ONE (07:00)
[2021-07-04 07:07] LABS: Albumin 2.5 g/dL (3.4-5.0); Calcium 9.3 mg/dL (8.5-10.1); Potassium 5.1 mmol/L (3.5-5.1)
[2021-07-04 07:10] LABS: Bilirubin, Total 0.8 mg/dL (0.2-1.0); Total Protein 7.7 g/dL (6.4-8.2)
[2021-07-04 07:32] LABS: Eosinophils % (manual) 3 (0-7); Lymphocytes % (manual) 7 (10.0-50.0); Monocytes % (manual) 18 (0-12)
[2021-07-04 09:00] VITALS: BP 97/37
[2021-07-04] MEDS: SODIUM CHLOR 0.9% PF (SALINE LOCK) 10ML VIAL/SYR IV SCH ×2 (10:00→21:14)
[2021-07-04] MEDS: ASPirin 81 mg TAB PO SCH (11:29)
[2021-07-04] MEDS: PANTOPRAZOLE 40 MG/10 ML VIAL INJ IV SCH ×2 (11:30→21:10)
[2021-07-04] MEDS: AURYXIA 210MG PO SCH ×3 (11:30→18:20)
[2021-07-04] MEDS: METOPROLOL TARTRATE 50 MG TAB PO SCH ×2 (11:30→21:12)
[2021-07-04 12:47] VITALS: BP 118/65
[2021-07-04 14:59] LABS: Hepatitis A Ab IgM Negative; Hepatitis B Core IgM Negative; Hepatitis B Surface Antigen Negative (Negative)
[2021-07-04 15:01] LABS: Hepatitis C Antibody Positive (Negative)
[2021-07-04 16:57] VITALS: BP 110/42
[2021-07-04] MEDS: CEFEPIME 0.5 GM in SODIUM CHL 0.9% 50 ML IV SCH (18:14)
[2021-07-04] MEDS: ATORVASTATIN 20 MG TAB PO SCH (21:11)
[2021-07-04] MEDS: MORPHINE SULFATE INJECTION 2 MG/2 ML SYRG IV PRN (21:11)
[2021-07-04 21:34] VITALS: BP 167/68
[2021-07-05] MEDS: ALBUTEROL SULF 2.5 MG/0.5ML(0.5%) NEB SOLN NEB SCH ×4 (00:04→19:01)
[2021-07-05] MEDS: IPRATROPIUM BROM 0.5 MG/2.5ML INH SOL NEB SCH ×4 (00:04→19:01)
[2021-07-05 04:51] VITALS: BP 125/84
[2021-07-05] MEDS ORDERED: predniSONE 20 MG TAB PO ONE (05:00)
[2021-07-05] MEDS: ACCU-CHEK COMFORT CURVE STRIP VI SCH ×4 (05:56→21:46)
[2021-07-05] MEDS: InsuLIN REG 1unit/0.01ml Soln (100units/ml) SC SCH ×4 (05:59→21:46)
[2021-07-05 06:10] LABS: Basophils # (auto) 0 10 ^3/uL (0-0.2); Basophils % (auto) 0.2 % (0.0-2.0); Eosinophils # (auto) 0 10 ^3/uL (0-0.8); Hematocrit 30.8 % (41.0-53.0); Hemoglobin 10.6 g/dL (13.5-17.5); Lymphocytes # (auto) 0.5 10 ^3/uL (0.4-5.4); Lymphocytes % (auto) 4.8 % (10.0-50.0); Mean Corpuscular Hemoglobin 31.9 pg (28.0-32.0); Mean Corpuscular Hgb Conc. 34.3 g/dL (32.0-36.0); Monocytes # (auto) 0.7 10 ^3/uL (0-1.3); Monocytes % (auto) 7.8 % (0.0-12.0); Neutrophils # (auto) 8.3 10 ^3/uL (1.6-8.6); Neutrophils % (auto) 87.2 % (37.0-80.0); Red Blood Cells 3.31 10^6/uL (4.5-5.90); Red Cell Distribution Width 13.8 % (11.8-14.3); White Blood Cell 9.5 10^3/uL (4.4-10.8)
[2021-07-05 06:26] LABS: Albumin 2.4 g/dL (3.4-5.0); BUN/Creatinine Ratio 8.3; Bilirubin, Total 0.6 mg/dL (0.2-1.0); Calcium 9.6 mg/dL (8.5-10.1); Total Protein 7.4 g/dL (6.4-8.2)
[2021-07-05] MEDS ORDERED: LIDOCAINE 2%HCL (LOCAL ANESTH.) INJ 20ML MDV ONE (07:49)
[2021-07-05] MEDS ORDERED: IODIXANOL 320MG/ML 100ML BTL IV ONE ×2 (07:49→08:44)
[2021-07-05] MEDS ORDERED: HEPARIN IN NS 1000Units/500mL 1,500 ML ONE (07:50)
[2021-07-05] MEDS: AURYXIA 210MG PO SCH ×3 (07:54→17:54)
[2021-07-05] MEDS ORDERED: ANGIOMAX 250 MG VIAL IV ONE (08:08)
[2021-07-05] MEDS ORDERED: fentaNYL CITRATE 100 MCG/2 ML VL ONE (08:08)
[2021-07-05] MEDS ORDERED: SODIUM CHL 0.9% 50 ML ONE ×2 (08:09→08:44)
[2021-07-05] MEDS ORDERED: MIDAZOLAM HCL 2MG/2ML 2ml VIAL (1mg/ml) ONE (08:09)
[2021-07-05] MEDS ORDERED: diphenhdrAMINE HCL 50 MG/1 ML VL ONE (08:18)
[2021-07-05] MEDS ORDERED: methylPREDNISolone SOD SUCC 125 MG/2 ML VL ONE (08:18)
[2021-07-05] MEDS ORDERED: FAMOTIDINE (10MG/ML) 2ML VL IV ONE (08:20)
[2021-07-05] MEDS ORDERED: NITROGLYCERIN 5MG/ML 10ML VIAL IV ONE (08:44)
[2021-07-05 09:00] VITALS: BP 104/57
[2021-07-05] MEDS ORDERED: VERAPAMIL 2.5MG/ML INJ 2ML VIAL IV ONE (09:03)
[2021-07-05] MEDS: METOPROLOL TARTRATE 50 MG TAB PO SCH ×2 (10:00→21:47)
[2021-07-05] MEDS: ASPirin 81 mg TAB PO SCH (10:00)
[2021-07-05] MEDS: PANTOPRAZOLE 40 MG/10 ML VIAL INJ IV SCH ×2 (10:34→21:45)
[2021-07-05] MEDS: SODIUM CHLOR 0.9% PF (SALINE LOCK) 10ML VIAL/SYR IV SCH ×2 (10:34→21:45)
[2021-07-05] MEDS: CEFEPIME 0.5 GM in SODIUM CHL 0.9% 50 ML IV SCH (12:39)
[2021-07-05 12:41] VITALS: BP 152/54
[2021-07-05 17:00] VITALS: BP 154/53
[2021-07-05] MEDS: hydrALAZINE HCL 20 MG/ML VL IV PRN (17:00)
[2021-07-05] MEDS: ATORVASTATIN 20 MG TAB PO SCH (21:45)
[2021-07-05 21:53] VITALS: BP 135/48
[2021-07-06] MEDS: IPRATROPIUM BROM 0.5 MG/2.5ML INH SOL NEB SCH ×4 (03:50→19:05)
[2021-07-06] MEDS: ALBUTEROL SULF 2.5 MG/0.5ML(0.5%) NEB SOLN NEB SCH ×4 (03:51→19:05)
[2021-07-06 05:48] VITALS: BP 152/103
[2021-07-06] MEDS: InsuLIN REG 1unit/0.01ml Soln (100units/ml) SC SCH ×4 (06:39→21:25)
[2021-07-06] MEDS: ACCU-CHEK COMFORT CURVE STRIP VI SCH ×4 (06:43→21:53)
[2021-07-06] MEDS ORDERED: SODIUM CHL 0.9% 1000 ML BAG XX ONE (07:00)
[2021-07-06] MEDS ORDERED: ceFAZolin 1GM/50ML 100 ML IV ONE (07:20)
[2021-07-06 09:00] VITALS: BP 148/73
[2021-07-06] MEDS: SODIUM CHLOR 0.9% PF (SALINE LOCK) 10ML VIAL/SYR IV SCH ×2 (09:36→21:51)
[2021-07-06] MEDS: PANTOPRAZOLE 40 MG/10 ML VIAL INJ IV SCH ×2 (12:11→21:50)
[2021-07-06] MEDS: ASPirin 81 mg TAB PO SCH (12:11)
[2021-07-06] MEDS: METOPROLOL TARTRATE 50 MG TAB PO SCH ×2 (12:12→21:52)
[2021-07-06] MEDS: CEFEPIME 0.5 GM in SODIUM CHL 0.9% 50 ML IV SCH (12:17)
[2021-07-06] MEDS: AURYXIA 210MG PO SCH ×3 (12:17→18:00)
[2021-07-06 13:00] VITALS: BP 144/68
[2021-07-06 16:27] VITALS: BP 141/66
[2021-07-06 16:45] VITALS: BP 144/66
[2021-07-06] MEDS: ATORVASTATIN 20 MG TAB PO SCH (21:51)
[2021-07-06 22:00] VITALS: BP 118/67
[2021-07-07] MEDS: IPRATROPIUM BROM 0.5 MG/2.5ML INH SOL NEB SCH ×3 (00:46→12:14)
[2021-07-07] MEDS: ALBUTEROL SULF 2.5 MG/0.5ML(0.5%) NEB SOLN NEB SCH ×3 (00:46→12:14)
[2021-07-07] MEDS ORDERED: ACETAMINOPHEN 325 MG TAB PO PRN (05:15)
[2021-07-07 05:27] VITALS: BP 137/63
[2021-07-07] MEDS: ACCU-CHEK COMFORT CURVE STRIP VI SCH ×2 (06:30→11:03)
[2021-07-07] MEDS: InsuLIN REG 1unit/0.01ml Soln (100units/ml) SC SCH ×2 (06:30→11:30)
[2021-07-07 09:00] VITALS: BP 161/106
[2021-07-07] MEDS: SODIUM CHLOR 0.9% PF (SALINE LOCK) 10ML VIAL/SYR IV SCH (10:00)
[2021-07-07] MEDS: PANTOPRAZOLE 40 MG/10 ML VIAL INJ IV SCH (10:32)
[2021-07-07] MEDS: METOPROLOL TARTRATE 50 MG TAB PO SCH (10:32)
[2021-07-07] MEDS: ASPirin 81 mg TAB PO SCH (10:32)
[2021-07-07] MEDS: AURYXIA 210MG PO SCH ×2 (10:33→12:30)
[2021-07-07 11:26] VITALS: BP 140/79
[2021-07-07] MEDS: CEFEPIME 0.5 GM in SODIUM CHL 0.9% 50 ML IV SCH (12:00)
[2021-07-07 12:39] VITALS: BP 151/95
== END 2021-07-07 14:00 | disposition home or self-care (01) | DRG 270 ==
LOC: ER 13:17 → EDBD 13:17 → TELE 15:45 → ICU WEST 22:48 → TELE 22:48 → ICU WEST 06-25 04:20 → TELE-WESTW 07-02 12:23
PROVIDERS: ADMIT Hospitalist; ATTEND Family Medicine
PROC: 5A1955Z Respiratory Ventilation, Greater than 96 Consecutive Hours (ICD-10-PCS; 2021-06-24)
PROC: 0BH17EZ Insertion of Endotracheal Airway into Trachea, Via Natural or Artificial Opening (ICD-10-PCS; 2021-06-24)
PROC: 5A09357 Assistance with Respiratory Ventilation, Less than 24 Consecutive Hours, Continuous Positive Airway Pressure (ICD-10-PCS; 2021-06-24)
PROC: 5A1D70Z Performance of Urinary Filtration, Intermittent, Less than 6 Hours Per Day (ICD-10-PCS; 2021-06-24)
PROC: B54MZZA Ultrasonography of Right Upper Extremity Veins, Guidance (ICD-10-PCS; 2021-06-27)
PROC: 05HY33Z Insertion of Infusion Device into Upper Vein, Percutaneous Approach (ICD-10-PCS; 2021-06-27)
PROC: 5A1D70Z Performance of Urinary Filtration, Intermittent, Less than 6 Hours Per Day (ICD-10-PCS; 2021-06-27)
PROC: 0DJ08ZZ Inspection of Upper Intestinal Tract, Via Natural or Artificial Opening Endoscopic (ICD-10-PCS; 2021-06-28)
PROC: 5A1D70Z Performance of Urinary Filtration, Intermittent, Less than 6 Hours Per Day (ICD-10-PCS; 2021-06-29)
PROC: 5A1D70Z Performance of Urinary Filtration, Intermittent, Less than 6 Hours Per Day (ICD-10-PCS; 2021-07-01)
PROC: 5A1D70Z Performance of Urinary Filtration, Intermittent, Less than 6 Hours Per Day (ICD-10-PCS; 2021-07-04)
PROC: 5A1D70Z Performance of Urinary Filtration, Intermittent, Less than 6 Hours Per Day (ICD-10-PCS; 2021-07-06)
PROC: 04CK3ZZ Extirpation of Matter from Right Femoral Artery, Percutaneous Approach (ICD-10-PCS; principal; 2021-07-07)
PROC: 047K3ZZ Dilation of Right Femoral Artery, Percutaneous Approach (ICD-10-PCS; 2021-07-07)
PROC: B41GYZZ Fluoroscopy of Left Lower Extremity Arteries using Other Contrast (ICD-10-PCS; 2021-07-07)
PROC: B41FYZZ Fluoroscopy of Right Lower Extremity Arteries using Other Contrast (ICD-10-PCS; 2021-07-07)
DX: T82.856A Stenosis of peripheral vascular stent, initial encounter (principal); N18.6 End stage renal disease; J96.01 Acute respiratory failure with hypoxia; K29.71 Gastritis, unspecified, with bleeding; K20.91 Esophagitis, unspecified with bleeding; A41.9 Sepsis, unspecified organism; J15.6 Pneumonia due to other Gram-negative bacteria; I50.43 Acute on chronic combined systolic (congestive) and diastolic (congestive) heart failure; J45.901 Unspecified asthma with (acute) exacerbation; J44.0 Chronic obstructive pulmonary disease with (acute) lower respiratory infection; I13.2 Hypertensive heart and chronic kidney disease with heart failure and with stage 5 chronic kidney disease, or end stage renal disease; I16.9 Hypertensive crisis, unspecified; Z20.822 Contact with and (suspected) exposure to COVID-19; E11.40 Type 2 diabetes mellitus with diabetic neuropathy, unspecified; E87.5 Hyperkalemia; D63.1 Anemia in chronic kidney disease; E11.22 Type 2 diabetes mellitus with diabetic chronic kidney disease; E88.09 Other disorders of plasma-protein metabolism, not elsewhere classified; B19.20 Unspecified viral hepatitis C without hepatic coma; E11.51 Type 2 diabetes mellitus with diabetic peripheral angiopathy without gangrene; E86.9 Volume depletion, unspecified; K59.00 Constipation, unspecified; I70.201 Unspecified atherosclerosis of native arteries of extremities, right leg; E66.9 Obesity, unspecified; Y83.1 Surgical operation with implant of artificial internal device as the cause of abnormal reaction of the patient, or of later complication, without mention of misadventure at the time of the procedure; Z91.041 Radiographic dye allergy status; Z91.013 Allergy to seafood; Z68.26 Body mass index [BMI] 26.0-26.9, adult; Z79.899 Other long term (current) drug therapy; Z79.02 Long term (current) use of antithrombotics/antiplatelets; Z99.2 Dependence on renal dialysis; Z82.49 Family history of ischemic heart disease and other diseases of the circulatory system
CPT/HCPCS: 31500; 36415; 36569; 36600; 37225; 43235; 71045; 75716; 78582; 80048; 80053; 80061; 80074; 80307; 81001; 82306; 82728; 82805; 82962; 83036; 83605; 83615; 83735; 83880; 84100; 84132; 84443; 84484; 84550; 85007; 85025; 85027; 85379; 85610; 85730; 86141; 86850; 86900; 86901; 87040; 87070; 87077; 87081; 87086; 87186; 87205; 87426; 90935; 93005; 93306; 93926; 93970; 94002; 94003; 94640; 94660; 94667; 94668; 96365; 96366; 96368; 96372; 96375; 97110; 97116; 97530; 99152; 99153; 99291; C1724; C9113; G0378; J0330; J0690; J1642; J1815; J2250; J2543; J2704; J3490; J7060; P9047; Q9967

== ENCOUNTER 2021-07-18 03:44 | Inpatient (IN) | payer MEDICARE ==
[~2021-07-18] VITALS: Ht 172.7 cm; Wt 83.3 kg
[~2021-07-18 03:44] MED LIST: ALBU108A5 INH; ASPI-231 PO; B-COTAB59 PO; CLOP75TA70 PO; FERR1TAB17 PO; FLUT115A INH; FLUT1AER6 INH; FLUT50SP NAS; GING250C PO; IPRA0.00 NEB; LACT10SO3 PO; OMEG1CAP59 PO; POM; PRE5T PO; TURM500C3 PO
[2021-07-18] MEDS ORDERED: IPRATROPIUM BROM 0.5 MG/2.5ML INH SOL HHN ONE (04:30)
[2021-07-18] MEDS ORDERED: ALBUTEROL SULF 2.5 MG/0.5ML(0.5%) NEB SOLN HHN ONE (04:30)
[2021-07-18] MEDS ORDERED: methylPREDNISolone SOD SUCC 125 MG/2 ML VL IV ONE (04:30)
[2021-07-18] MEDS ORDERED: MORPHINE SULFATE INJECTION 2 MG/ML SYRG IV PRN ×3 (05:30→06:30)
[2021-07-18] MEDS ORDERED: FUROSEMIDE 100 MG/10ML VIAL IV ONE (05:30)
[2021-07-18] MEDS ORDERED: LABETALOL HCL 5 MG/ML 4ML SYRINGE IV ONE (05:30)
[2021-07-18] MEDS ORDERED: NITROGLYCERIN 0.4 MG SL TAB SL PRN ×2 (05:30→06:30)
[2021-07-18] MEDS ORDERED: MIDAZOLAM HCL 5 MG/ML-1ML VIAL IV ONE (05:45)
[2021-07-18] MEDS: FUROSEMIDE 20 MG/2 ML VIAL IV SCH ×2 (06:00→19:44)
[2021-07-18] MEDS ORDERED: ENOXAPARIN SOD 30 MG/0.3 ML SYRINGE SC ONE (06:15)
[2021-07-18] MEDS ORDERED: PANTOPRAZOLE 40 MG/10 ML VIAL INJ IV ONE (06:15)
[2021-07-18] MEDS ORDERED: DEXTROSE (50%) 50ML SYRG IV PRN (06:15)
[2021-07-18] MEDS ORDERED: IPRATROPIUM BROM 0.5 MG/2.5ML INH SOL NEB ONE (06:15)
[2021-07-18] MEDS ORDERED: ACETAMINOPHEN 325 MG TAB PO PRN (06:30)
[2021-07-18] MEDS ORDERED: LORazepam 0.5 MG TAB PO PRN (06:30)
[2021-07-18] MEDS: PANTOPRAZOLE 40 MG/10 ML VIAL INJ IV SCH (06:30)
[2021-07-18] MEDS ORDERED: DOXYCYCLINE 100MG/250ML 250 ML IV ONE (06:30)
[2021-07-18] MEDS ORDERED: B-COMPLEX W/ C & FOLIC ACID(NEPHROVITE TAB) PO ONE (06:30)
[2021-07-18] MEDS ORDERED: METOCLOPRAMIDE HCL 5MG/ml INJ 2ml VIAL IV PRN (06:30)
[2021-07-18] MEDS: ACCU-CHEK COMFORT CURVE STRIP VI SCH ×4 (06:35→22:38)
[2021-07-18] MEDS: InsuLIN REG 1unit/0.01ml Soln (100units/ml) SC SCH ×4 (06:37→22:00)
[2021-07-18] MEDS ORDERED: CALCIUM CHL 100MG/ML 1,000 MG in D5W 5% 100 ML IV ONE (07:30)
[2021-07-18] MEDS ORDERED: SODIUM BICARBONATE 8.4% INJ 50ML SYRINGE IV ONE ×2 (07:30→08:15)
[2021-07-18] MEDS ORDERED: ALBUTEROL SULF 2.5 MG/0.5ML(0.5%) NEB SOLN NEB ONE ×2 (07:30→08:15)
[2021-07-18] MEDS ORDERED: InsuLIN REG 1unit/0.01ml Soln (100units/ml) IV ONE (07:30)
[2021-07-18] MEDS ORDERED: SODIUM ZIRCONIUM CYCL 10 GM PAK PO ONE ×2 (07:30→08:00)
[2021-07-18] MEDS ORDERED: FUROSEMIDE 20 MG/2 ML VIAL IV ONE (07:30)
[2021-07-18] MEDS ORDERED: DEXTROSE (50%) 50ML SYRG IV ONE ×2 (07:30→08:15)
[2021-07-18 07:41] LABS: Basophils # (auto) 0 10 ^3/uL (0-0.2); Basophils % (auto) 0.3 % (0.0-2.0); Eosinophils # (auto) 0 10 ^3/uL (0-0.8); Eosinophils % (auto) 0.2 % (0.0-7.0); Hematocrit 30.2 % (41.0-53.0); Lymphocytes # (auto) 0.3 10 ^3/uL (0.4-5.4); Lymphocytes % (auto) 2.1 % (10.0-50.0); Mean Corpuscular Hgb Conc. 32.9 g/dL (32.0-36.0); Mean Corpuscular Volume 94.1 fL (80.0-100.0); Monocytes # (auto) 0.4 10 ^3/uL (0-1.3); Monocytes % (auto) 2.5 % (0.0-12.0); Neutrophils # (auto) 14.4 10 ^3/uL (1.6-8.6); Neutrophils % (auto) 94.9 % (37.0-80.0); Nucleated Red Blood Cells % 0.2 %; Red Blood Cells 3.21 10^6/uL (4.5-5.90); Red Cell Distribution Width 14.5 % (11.8-14.3); White Blood Cell 15.1 10^3/uL (4.4-10.8)
[2021-07-18 07:43] LABS: Anion Gap 7 (5-15); Blood Urea Nitrogen 39 mg/dL (7-18); Calcium 7.6 mg/dL (8.5-10.1); Carbon Dioxide 28 mmol/L (21-32); Chloride 103 mmol/L (98-107); Glucose 176 mg/dL (74-106); Magnesium 3.4 mg/dL (1.6-2.6); Sodium 138 mmol/L (136-145)
[2021-07-18 07:46] LABS: Alanine Aminotransferase 28 U/L (16-61); Alkaline Phosphatase 134 U/L (45-117); Aspartate Aminotransferase 28 U/L (15-37); BUN/Creatinine Ratio 4.2; Bilirubin, Total 0.5 mg/dL (0.2-1.0); GFR African American 7 mL/min; GFR Non-African American 6 mL/min; Phosphorus 4.1 mg/dL (2.5-4.90); Total Protein 8.3 g/dL (6.4-8.2)
[2021-07-18 07:52] LABS: Potassium 5.6 mmol/L (3.5-5.1)
[2021-07-18] MEDS ORDERED: CALCIUM GLUC 1,000mg/50ml-NS 50 ML IV ONE (08:15)
[2021-07-18 09:27] LABS: INR 1.09 (0.9-1.15)
[2021-07-18] MEDS ORDERED: VANCOMYCIN 1,500 MG in D5W 5% 250 ML IV SCH (10:00)
[2021-07-18] MEDS: ISOSORBIDE MONONITRATE ER 60 MG TAB PO SCH (10:27)
[2021-07-18] MEDS: ASPirin-EC 81 mg tab PO SCH (10:27)
[2021-07-18] MEDS: CLOPIDOGREL BISULFATE 75 MG TAB PO SCH (10:28)
[2021-07-18] MEDS: METOPROLOL SUCCINATE XL 50 MG TAB PO SCH (10:28)
[2021-07-18 12:15] LABS: Calcium 7.9 mg/dL (8.5-10.1)
[2021-07-18] MEDS: IPRATROPIUM BROM 0.5 MG/2.5ML INH SOL NEB SCH ×3 (12:34→22:24)
[2021-07-18 12:43] LABS: Urine Bacteria NONE SEEN /hpf (None Seen); Urine Blood TRACE /uL (Negative); Urine Specific Gravity 1.009 (1.001-1.035); Urine WBC 2 /hpf (0 - 3)
[2021-07-18 12:53] LABS: Alcohol, Urine < 3.0 mg/dL (0-10); Amphetamine Screen, Urine NEGATIVE (NEGATIVE); Barbiturate Scree,Urine NEGATIVE (NEGATIVE); Benzodiazephine Screen, Urine POSITIVE (NEGATIVE); Cannabinoid Screen, Urine NEGATIVE (NEGATIVE); Cocaine Screen, Urine NEGATIVE (NEGATIVE); Opiate Scree,Urine NEGATIVE (NEGATIVE); Phencyclidine Screen, Urine NEGATIVE (NEGATIVE)
[2021-07-18 12:59] LABS: Potassium 5.9 mmol/L (3.5-5.1)
[2021-07-18] MEDS: SODIUM ZIRCONIUM CYCL 10 GM PAK PO SCH ×2 (14:00→22:38)
[2021-07-18] MEDS ORDERED: LORazepam 2MG/ML-1ML VIAL ONE (15:26)
[2021-07-18] MEDS ORDERED: LORazepam 2MG/ML-1ML VIAL IV ONE (15:45)
[2021-07-18] MEDS ORDERED: SODIUM CHL 0.9% 1000 ML BAG XX ONE (16:45)
[2021-07-18 18:26] VITALS: BP 155/60
[2021-07-18] MEDS: TAMSULOSIN HYDROCHLORIDE 0.4 MG CAP PO SCH (19:44)
[2021-07-18] MEDS: DOXYCYCLINE 100MG/250ML 250 ML IV SCH (19:44)
[2021-07-18 20:55] VITALS: BP 169/53
[2021-07-18] MEDS: LABETALOL HCL 5 MG/ML 4ML SYRINGE IV PRN (21:59)
[2021-07-18] MEDS: ATORVASTATIN 20 MG TAB PO SCH (22:38)
[2021-07-18 22:39] VITALS: BP 143/47
[2021-07-19] VITALS (7 sets, daily range): BP systolic 129–161; BP diastolic 51–91
[2021-07-19] MEDS: IPRATROPIUM BROM 0.5 MG/2.5ML INH SOL NEB SCH ×6 (02:00→22:06)
[2021-07-19 05:35] LABS: Basophils # (auto) 0 10 ^3/uL (0-0.2); Basophils % (auto) 0.1 % (0.0-2.0); Eosinophils # (auto) 0 10 ^3/uL (0-0.8); Hematocrit 26.1 % (41.0-53.0); Hemoglobin 8.8 g/dL (13.5-17.5); Lymphocytes # (auto) 0.4 10 ^3/uL (0.4-5.4); Lymphocytes % (auto) 4.5 % (10.0-50.0); Mean Corpuscular Hemoglobin 31.8 pg (28.0-32.0); Mean Corpuscular Hgb Conc. 33.6 g/dL (32.0-36.0); Mean Corpuscular Volume 94.7 fL (80.0-100.0); Monocytes # (auto) 0.6 10 ^3/uL (0-1.3); Monocytes % (auto) 6.2 % (0.0-12.0); Neutrophils # (auto) 7.9 10 ^3/uL (1.6-8.6); Neutrophils % (auto) 89.2 % (37.0-80.0); Red Blood Cells 2.76 10^6/uL (4.5-5.90); Red Cell Distribution Width 14.5 % (11.8-14.3); White Blood Cell 8.9 10^3/uL (4.4-10.8)
[2021-07-19 06:00] LABS: Calcium 7.7 mg/dL (8.5-10.1); Potassium 5.1 mmol/L (3.5-5.1)
[2021-07-19 06:02] LABS: BUN/Creatinine Ratio 4.7
[2021-07-19] MEDS: ACCU-CHEK COMFORT CURVE STRIP VI SCH ×4 (06:23→22:00)
[2021-07-19] MEDS: SODIUM ZIRCONIUM CYCL 10 GM PAK PO SCH ×3 (06:38→22:00)
[2021-07-19] MEDS: DOXYCYCLINE 100MG/250ML 250 ML IV SCH ×2 (06:38→18:30)
[2021-07-19] MEDS: PANTOPRAZOLE 40 MG/10 ML VIAL INJ IV SCH (06:38)
[2021-07-19] MEDS: FUROSEMIDE 20 MG/2 ML VIAL IV SCH ×2 (06:38→18:33)
[2021-07-19] MEDS: InsuLIN REG 1unit/0.01ml Soln (100units/ml) SC SCH ×4 (07:00→22:00)
[2021-07-19] MEDS: B-COMPLEX W/ C & FOLIC ACID(NEPHROVITE TAB) PO SCH (09:23)
[2021-07-19] MEDS: ISOSORBIDE MONONITRATE ER 60 MG TAB PO SCH (09:23)
[2021-07-19] MEDS: ASPirin-EC 81 mg tab PO SCH (09:23)
[2021-07-19] MEDS: CLOPIDOGREL BISULFATE 75 MG TAB PO SCH (09:24)
[2021-07-19] MEDS: ENOXAPARIN SOD 30 MG/0.3 ML SYRINGE SC SCH (09:24)
[2021-07-19] MEDS: METOPROLOL SUCCINATE XL 50 MG TAB PO SCH (09:24)
[2021-07-19] MEDS: HYDROcodone-ACET 5/325MG TAB PO PRN ×3 (09:25→23:10)
[2021-07-19] MEDS: DOCUSATE SOD 100 MG CAP PO PRN (15:45)
[2021-07-19] MEDS: TAMSULOSIN HYDROCHLORIDE 0.4 MG CAP PO SCH (18:33)
[2021-07-19] MEDS: ALBUTEROL SULF 2.5 MG/0.5ML(0.5%) NEB SOLN NEB SCH ×2 (19:35→22:06)
[2021-07-19] MEDS: ATORVASTATIN 20 MG TAB PO SCH (22:00)
[2021-07-20] MEDS: IPRATROPIUM BROM 0.5 MG/2.5ML INH SOL NEB SCH ×6 (02:03→22:46)
[2021-07-20] MEDS: ALBUTEROL SULF 2.5 MG/0.5ML(0.5%) NEB SOLN NEB SCH ×6 (02:03→22:46)
[2021-07-20 05:00] VITALS: BP 157/60
[2021-07-20] MEDS: InsuLIN REG 1unit/0.01ml Soln (100units/ml) SC SCH ×4 (05:31→22:00)
[2021-07-20] MEDS: ACCU-CHEK COMFORT CURVE STRIP VI SCH ×3 (05:31→17:00)
[2021-07-20] MEDS: FUROSEMIDE 20 MG/2 ML VIAL IV SCH ×2 (05:50→17:23)
[2021-07-20] MEDS: DOXYCYCLINE 100MG/250ML 250 ML IV SCH ×2 (05:51→18:30)
[2021-07-20] MEDS: PANTOPRAZOLE 40 MG/10 ML VIAL INJ IV SCH (05:51)
[2021-07-20] MEDS: SODIUM ZIRCONIUM CYCL 10 GM PAK PO SCH (05:51)
[2021-07-20 06:41] LABS: Basophils # (auto) 0 10 ^3/uL (0-0.2); Basophils % (auto) 0.6 % (0.0-2.0); Eosinophils # (auto) 0 10 ^3/uL (0-0.8); Eosinophils % (auto) 0.2 % (0.0-7.0); Hematocrit 25.3 % (41.0-53.0); Hemoglobin 8.6 g/dL (13.5-17.5); Lymphocytes % (auto) 12.1 % (10.0-50.0); Mean Corpuscular Volume 94.3 fL (80.0-100.0); Monocytes # (auto) 0.7 10 ^3/uL (0-1.3); Monocytes % (auto) 8.1 % (0.0-12.0); Neutrophils # (auto) 6.4 10 ^3/uL (1.6-8.6); Nucleated Red Blood Cells % 0.1 %; Red Blood Cells 2.68 10^6/uL (4.5-5.90); Red Cell Distribution Width 14.3 % (11.8-14.3); White Blood Cell 8.1 10^3/uL (4.4-10.8)
[2021-07-20 06:59] LABS: BUN/Creatinine Ratio 5.9; Calcium 7.6 mg/dL (8.5-10.1); Potassium 3.7 mmol/L (3.5-5.1)
[2021-07-20 09:00] VITALS: BP 148/81
[2021-07-20] MEDS: B-COMPLEX W/ C & FOLIC ACID(NEPHROVITE TAB) PO SCH (09:27)
[2021-07-20] MEDS: ASPirin-EC 81 mg tab PO SCH (09:27)
[2021-07-20] MEDS: CLOPIDOGREL BISULFATE 75 MG TAB PO SCH (09:27)
[2021-07-20] MEDS: ENOXAPARIN SOD 30 MG/0.3 ML SYRINGE SC SCH (09:28)
[2021-07-20] MEDS: METOPROLOL SUCCINATE XL 50 MG TAB PO SCH (09:30)
[2021-07-20] MEDS: ISOSORBIDE MONONITRATE ER 60 MG TAB PO SCH (09:30)
[2021-07-20] MEDS ORDERED: SODIUM CHL 0.9% 1000 ML BAG XX ONE (09:45)
[2021-07-20 13:00] VITALS: BP 137/69
[2021-07-20] MEDS: LABETALOL HCL 5 MG/ML 4ML SYRINGE IV PRN (14:49)
[2021-07-20 16:46] VITALS: BP 111/60
[2021-07-20] MEDS: TAMSULOSIN HYDROCHLORIDE 0.4 MG CAP PO SCH (17:22)
[2021-07-20] MEDS: ATORVASTATIN 20 MG TAB PO SCH (22:09)
[2021-07-20] MEDS: DOCUSATE SOD 100 MG CAP PO PRN (22:10)
[2021-07-20 22:24] VITALS: BP 148/70
[2021-07-21] MEDS: ALBUTEROL SULF 2.5 MG/0.5ML(0.5%) NEB SOLN NEB SCH ×4 (02:42→14:47)
[2021-07-21] MEDS: IPRATROPIUM BROM 0.5 MG/2.5ML INH SOL NEB SCH ×4 (02:42→14:47)
[2021-07-21 05:00] VITALS: BP 137/74
[2021-07-21] MEDS: DOXYCYCLINE 100MG/250ML 250 ML IV SCH (06:36)
[2021-07-21] MEDS: PANTOPRAZOLE 40 MG/10 ML VIAL INJ IV SCH (06:36)
[2021-07-21 06:37] LABS: Basophils # (auto) 0.1 10 ^3/uL (0-0.2); Basophils % (auto) 0.7 % (0.0-2.0); Eosinophils # (auto) 0 10 ^3/uL (0-0.8); Eosinophils % (auto) 0.5 % (0.0-7.0); Hemoglobin 9.6 g/dL (13.5-17.5); Lymphocytes # (auto) 0.7 10 ^3/uL (0.4-5.4); Lymphocytes % (auto) 9.9 % (10.0-50.0); Mean Corpuscular Hemoglobin 31.9 pg (28.0-32.0); Mean Corpuscular Hgb Conc. 34.4 g/dL (32.0-36.0); Mean Corpuscular Volume 92.7 fL (80.0-100.0); Monocytes # (auto) 0.8 10 ^3/uL (0-1.3); Monocytes % (auto) 10.3 % (0.0-12.0); Neutrophils # (auto) 5.9 10 ^3/uL (1.6-8.6); Neutrophils % (auto) 78.6 % (37.0-80.0); Nucleated Red Blood Cells % 0.1 %; Red Blood Cells 3.02 10^6/uL (4.5-5.90); White Blood Cell 7.5 10^3/uL (4.4-10.8)
[2021-07-21] MEDS: ACCU-CHEK COMFORT CURVE STRIP VI SCH ×3 (06:42→11:30)
[2021-07-21] MEDS: FUROSEMIDE 20 MG/2 ML VIAL IV SCH (06:46)
[2021-07-21] MEDS: InsuLIN REG 1unit/0.01ml Soln (100units/ml) SC SCH ×2 (07:00→11:30)
[2021-07-21 07:16] LABS: Calcium 8.2 mg/dL (8.5-10.1); Potassium 3.3 mmol/L (3.5-5.1)
[2021-07-21 07:20] LABS: BUN/Creatinine Ratio 5.6
[2021-07-21 09:00] VITALS: BP 118/61
[2021-07-21] MEDS: B-COMPLEX W/ C & FOLIC ACID(NEPHROVITE TAB) PO SCH (09:47)
[2021-07-21] MEDS: CLOPIDOGREL BISULFATE 75 MG TAB PO SCH (09:47)
[2021-07-21] MEDS: ASPirin-EC 81 mg tab PO SCH (09:47)
[2021-07-21] MEDS: HYDROcodone-ACET 5/325MG TAB PO PRN (09:47)
[2021-07-21] MEDS: METOPROLOL SUCCINATE XL 50 MG TAB PO SCH (09:48)
[2021-07-21] MEDS: ISOSORBIDE MONONITRATE ER 60 MG TAB PO SCH (09:48)
[2021-07-21] MEDS: ENOXAPARIN SOD 30 MG/0.3 ML SYRINGE SC SCH (09:49)
[2021-07-21] MEDS ORDERED: POTASSIUM EFFERVESENT TAB 25 MEQ GT ONE ×2 (11:15)
[2021-07-21] MEDS ORDERED: DOX100T GT (11:24)
[2021-07-21 12:30] VITALS: BP 116/61
[2021-07-21 12:32] VITALS: BP 118/61
[2021-07-21 15:31] LABS: Hepatitis A Ab IgM Negative; Hepatitis B Core IgM Negative; Hepatitis B Surface Antigen Negative (Negative)
[2021-07-21 15:33] LABS: Hepatitis C Antibody Positive (Negative)
== END 2021-07-21 16:00 | disposition home or self-care (01) | DRG 871 ==
LOC: ER 03:44 → EDBD 03:44 → TELE 06:22 → TELE-WESTW 22:21
PROVIDERS: ADMIT Hospitalist; ATTEND Internal Medicine Pulmonary Disease
PROC: 5A09357 Assistance with Respiratory Ventilation, Less than 24 Consecutive Hours, Continuous Positive Airway Pressure (ICD-10-PCS; principal; 2021-07-18)
PROC: 5A1D70Z Performance of Urinary Filtration, Intermittent, Less than 6 Hours Per Day (ICD-10-PCS; 2021-07-18)
PROC: 5A1D70Z Performance of Urinary Filtration, Intermittent, Less than 6 Hours Per Day (ICD-10-PCS; 2021-07-20)
DX: A41.9 Sepsis, unspecified organism (principal); I50.33 Acute on chronic diastolic (congestive) heart failure; J96.01 Acute respiratory failure with hypoxia; N18.6 End stage renal disease; J84.9 Interstitial pulmonary disease, unspecified; I16.1 Hypertensive emergency; J44.0 Chronic obstructive pulmonary disease with (acute) lower respiratory infection; J45.901 Unspecified asthma with (acute) exacerbation; I13.2 Hypertensive heart and chronic kidney disease with heart failure and with stage 5 chronic kidney disease, or end stage renal disease; E11.21 Type 2 diabetes mellitus with diabetic nephropathy; E11.51 Type 2 diabetes mellitus with diabetic peripheral angiopathy without gangrene; E87.5 Hyperkalemia; K21.9 Gastro-esophageal reflux disease without esophagitis; E11.22 Type 2 diabetes mellitus with diabetic chronic kidney disease; Z20.822 Contact with and (suspected) exposure to COVID-19; Z79.02 Long term (current) use of antithrombotics/antiplatelets; Z99.2 Dependence on renal dialysis; Z91.19 Patient's noncompliance with other medical treatment and regimen; Z82.49 Family history of ischemic heart disease and other diseases of the circulatory system; D63.8 Anemia in other chronic diseases classified elsewhere; I25.9 Chronic ischemic heart disease, unspecified
CPT/HCPCS: 36415; 36600; 71045; 80048; 80053; 80074; 80307; 81001; 82805; 82962; 83605; 83735; 83880; 83970; 84100; 84484; 85025; 85610; 87040; 87081; 87086; 90935; 93005; 94640; 94644; 94660; 96365; 96366; 96367; 96372; 96375; 96376; 97163; 99291; C9113; G0378; J1815; J2250; J3490; J7060

== ENCOUNTER 2023-03-02 00:16 | Inpatient (IN) | payer MEDICARE ==
[~2023-03-02] VITALS: Ht 172.7 cm; Wt 91.0 kg
[~2023-03-02 00:16] MED LIST changes: -ASPI-231 PO; +ASPI1TAB20 PO; +DOX100T GT
[2023-03-02] MEDS ORDERED: hydrALAZINE HCL 20 MG/ML VL IV ONE (01:30)
[2023-03-02] MEDS ORDERED: cloNIDine HCL 0.1 MG TAB PO ONE (01:30)
[2023-03-02 02:05] LABS: Basophils # (auto) 0.1 10 ^3/uL (0-0.2); Basophils % (auto) 1.1 % (0.0-2.0); Eosinophils # (auto) 0.2 10 ^3/uL (0-0.8); Hematocrit 34.3 % (41.0-53.0); Hemoglobin 11.7 g/dL (13.5-17.5); Lymphocytes # (auto) 0.8 10 ^3/uL (0.4-5.4); Lymphocytes % (auto) 9.7 % (10.0-50.0); Mean Corpuscular Hemoglobin 31.5 pg (28.0-32.0); Mean Corpuscular Volume 92.8 fL (80.0-100.0); Monocytes # (auto) 0.6 10 ^3/uL (0-1.3); Monocytes % (auto) 7.4 % (0.0-12.0); Neutrophils # (auto) 6.5 10 ^3/uL (1.6-8.6); Neutrophils % (auto) 79.8 % (37.0-80.0); Red Cell Distribution Width 15.3 % (11.8-14.3); White Blood Cell 8.2 10^3/uL (4.4-10.8)
[2023-03-02 02:18] LABS: Albumin 3.2 g/dL (3.4-5.0); Anion Gap 11 (5-15); Calcium 8.8 mg/dL (8.5-10.1); Carbon Dioxide 27 mmol/L (21-32); Chloride 96 mmol/L (98-107); Glucose 133 mg/dL (74-106); INR 0.98 (0.9-1.15); Lipase 478 U/L (73-393); Partial Thromboplastin Time 28.2 sec (24.6-33.4); Potassium 4.2 mmol/L (3.5-5.1); Sodium 134 mmol/L (136-145)
[2023-03-02 02:20] LABS: Alanine Aminotransferase 25 U/L (16-61); Aspartate Aminotransferase 21 U/L (15-37); BUN/Creatinine Ratio 3.7 (10.0-20.0); Blood Alcohol < 3.0 mg/dL (0-5); Blood Urea Nitrogen 26 mg/dL (7-18); GFR African American 10 mL/min; GFR Non-African American 8 mL/min
[2023-03-02 02:22] LABS: Alkaline Phosphatase 75 U/L (45-117); Bilirubin, Total 0.5 mg/dL (0.2-1.0)
[2023-03-02] MEDS ORDERED: ONDANSETRON HCL 4 MG/2 ML VIAL IV ONE (03:45)
[2023-03-02] MEDS ORDERED: MORPHINE SULFATE INJ 2 MG/ml SYRG IV ONE (03:45)
[2023-03-02] MEDS ORDERED: ONDANSETRON HCL 4 MG/2 ML VIAL IV PRN (05:00)
[2023-03-02] MEDS ORDERED: ACETAMINOPHEN 325 MG TAB PO PRN (05:00)
[2023-03-02] MEDS ORDERED: DEXTROSE (50%) 50ML SYRG IV PRN (05:00)
[2023-03-02] MEDS ORDERED: HYDROcodone-ACET 5/325MG TAB PO PRN (05:00)
[2023-03-02 05:32] LABS: Basophils # (auto) 0 10 ^3/uL (0-0.2); Basophils % (auto) 0.6 % (0.0-2.0); Eosinophils # (auto) 0.1 10 ^3/uL (0-0.8); Eosinophils % (auto) 0.9 % (0.0-7.0); Hematocrit 31.9 % (41.0-53.0); Lymphocytes # (auto) 0.7 10 ^3/uL (0.4-5.4); Lymphocytes % (auto) 8.6 % (10.0-50.0); Mean Corpuscular Hemoglobin 31.9 pg (28.0-32.0); Mean Corpuscular Hgb Conc. 34.5 g/dL (32.0-36.0); Mean Corpuscular Volume 92.4 fL (80.0-100.0); Monocytes # (auto) 0.4 10 ^3/uL (0-1.3); Monocytes % (auto) 5.4 % (0.0-12.0); Neutrophils # (auto) 6.4 10 ^3/uL (1.6-8.6); Neutrophils % (auto) 84.5 % (37.0-80.0); Red Blood Cells 3.45 10^6/uL (4.5-5.90); Red Cell Distribution Width 15.7 % (11.8-14.3); White Blood Cell 7.6 10^3/uL (4.4-10.8)
[2023-03-02 05:48] LABS: Albumin 2.9 g/dL (3.4-5.0); BUN/Creatinine Ratio 3.8 (10.0-20.0); Potassium 4.4 mmol/L (3.5-5.1)
[2023-03-02 05:51] LABS: Bilirubin, Total 0.4 mg/dL (0.2-1.0); Total Protein 7.3 g/dL (6.4-8.2)
[2023-03-02] MEDS: SODIUM CHLOR 0.9% PF (SALINE LOCK) 10ML VIAL/SYR IV SCH ×3 (05:51→22:07)
[2023-03-02] MEDS ORDERED: NITROGLYCERIN 0.4 MG SL TAB SL PRN (06:30)
[2023-03-02] MEDS ORDERED: MORPHINE SULFATE INJ 2 MG/ml SYRG IV PRN (06:30)
[2023-03-02] MEDS: InsuLIN REG 1unit/0.01ml Soln (100units/ml) SC SCH ×4 (06:54→22:00)
[2023-03-02] MEDS: ACCU-CHEK COMFORT CURVE STRIP VI SCH ×4 (06:54→22:19)
[2023-03-02] MEDS: hydrALAZINE HCL 20 MG/ML VL IV PRN ×2 (06:57→18:17)
[2023-03-02] MEDS: SEVELAMER 800 MG TAB PO SCH ×3 (08:43→18:00)
[2023-03-02] MEDS: DOCUSATE SOD 100 MG CAP PO PRN (08:43)
[2023-03-02 09:12] LABS: Urine Bacteria FEW /hpf (None Seen); Urine Blood TRACE /uL (Negative); Urine Hyaline Cast FEW /lpf (0 - 2); Urine Specific Gravity 1.007 (1.001-1.035); Urine WBC 4 /hpf (0 - 3)
[2023-03-02 09:51] LABS: Alcohol, Urine < 3.0 mg/dL (0-10); Amphetamine Screen, Urine NEGATIVE (NEGATIVE); Barbiturate Scree,Urine NEGATIVE (NEGATIVE); Benzodiazephine Screen, Urine NEGATIVE (NEGATIVE); Cannabinoid Screen, Urine NEGATIVE (NEGATIVE); Cocaine Screen, Urine NEGATIVE (NEGATIVE); Opiate Scree,Urine NEGATIVE (NEGATIVE); Phencyclidine Screen, Urine NEGATIVE (NEGATIVE)
[2023-03-02] MEDS ORDERED: B-COMPLEX W/ C & FOLIC ACID(NEPHROVITE TAB) PO SCH (10:00)
[2023-03-02] MEDS: CARVEDILOL 12.5 MG TAB PO SCH ×2 (14:30→22:21)
[2023-03-02] MEDS: ASPirin 81 mg TAB PO SCH (14:30)
[2023-03-02] MEDS: MORPHINE SULFATE INJ 2 MG/ml SYRG IV PRN ×2 (14:32→23:03)
[2023-03-02] MEDS: amLODIPine BESYLATE 5 MG TAB PO SCH (14:33)
[2023-03-02] MEDS: LACTULOSE 20Gm/30ML SOLN PO PRN (21:08)
[2023-03-02] MEDS: ALBUTEROL SULF 2.5 MG/0.5ML(0.5%) NEB SOLN NEB PRN (22:21)
[2023-03-02] MEDS: IPRATROPIUM BROM 0.5 MG/2.5ML INH SOL NEB PRN (22:21)
[2023-03-02 23:19] VITALS: BP 146/58
[2023-03-03] VITALS (7 sets, daily range): BP systolic 100–186; BP diastolic 58–94
[2023-03-03] MEDS: MORPHINE SULFATE INJ 2 MG/ml SYRG IV PRN ×3 (03:34→22:31)
[2023-03-03] MEDS: hydrALAZINE HCL 25 MG TAB PO SCH ×3 (05:32→20:45)
[2023-03-03] MEDS: ACCU-CHEK COMFORT CURVE STRIP VI SCH ×4 (05:32→20:50)
[2023-03-03] MEDS: InsuLIN REG 1unit/0.01ml Soln (100units/ml) SC SCH ×4 (06:28→20:50)
[2023-03-03] MEDS: SODIUM CHLOR 0.9% PF (SALINE LOCK) 10ML VIAL/SYR IV SCH ×3 (06:28→20:47)
[2023-03-03] MEDS: SEVELAMER 800 MG TAB PO SCH ×3 (08:05→17:29)
[2023-03-03] MEDS: B-COMPLEX W/ C & FOLIC ACID(NEPHROVITE TAB) PO SCH (09:01)
[2023-03-03] MEDS: ASPirin 81 mg TAB PO SCH (09:01)
[2023-03-03] MEDS: amLODIPine BESYLATE 5 MG TAB PO SCH (09:03)
[2023-03-03] MEDS: CARVEDILOL 12.5 MG TAB PO SCH ×2 (09:04→20:45)
[2023-03-03 09:12] LABS: Basophils # (auto) 0 10 ^3/uL (0-0.2); Basophils % (auto) 0.4 % (0.0-2.0); Eosinophils # (auto) 0.2 10 ^3/uL (0-0.8); Eosinophils % (auto) 3.1 % (0.0-7.0); Hematocrit 35.8 % (41.0-53.0); Hemoglobin 12.1 g/dL (13.5-17.5); Lymphocytes # (auto) 1.4 10 ^3/uL (0.4-5.4); Lymphocytes % (auto) 20.3 % (10.0-50.0); Mean Corpuscular Hemoglobin 31.6 pg (28.0-32.0); Mean Corpuscular Hgb Conc. 33.8 g/dL (32.0-36.0); Mean Corpuscular Volume 93.5 fL (80.0-100.0); Monocytes # (auto) 0.8 10 ^3/uL (0-1.3); Monocytes % (auto) 11.1 % (0.0-12.0); Neutrophils # (auto) 4.5 10 ^3/uL (1.6-8.6); Neutrophils % (auto) 65.1 % (37.0-80.0); Nucleated Red Blood Cells % 0.2 %; Red Blood Cells 3.83 10^6/uL (4.5-5.90); Red Cell Distribution Width 15.7 % (11.8-14.3); White Blood Cell 6.9 10^3/uL (4.4-10.8)
[2023-03-03 09:42] LABS: Albumin 3.1 g/dL (3.4-5.0); Calcium 8.3 mg/dL (8.5-10.1)
[2023-03-03 09:47] LABS: BUN/Creatinine Ratio 3.5 (10.0-20.0); Bilirubin, Total 0.4 mg/dL (0.2-1.0); Total Protein 7.8 g/dL (6.4-8.2); Uric Acid 4.7 mg/dL (3.5-7.2)
[2023-03-03] MEDS ORDERED: DOXYCYCLINE 100MG/250ML 250 ML IV ONE (11:00)
[2023-03-03] MEDS: hydrALAZINE HCL 20 MG/ML VL IV PRN (11:02)
[2023-03-03] MEDS: LACTULOSE 20Gm/30ML SOLN PO PRN ×2 (15:05→22:33)
[2023-03-03] MEDS: DOCUSATE SOD 100 MG CAP PO PRN (20:45)
[2023-03-03] MEDS: ALBUTEROL SULF 2.5 MG/0.5ML(0.5%) NEB SOLN NEB PRN (21:26)
[2023-03-03] MEDS: IPRATROPIUM BROM 0.5 MG/2.5ML INH SOL NEB PRN (21:27)
[2023-03-03] MEDS: DOXYCYCLINE 100MG/250ML 250 ML IV SCH (21:57)
[2023-03-04] MEDS: hydrALAZINE HCL 25 MG TAB PO SCH ×4 (00:09→21:57)
[2023-03-04] MEDS: hydrALAZINE HCL 20 MG/ML VL IV PRN (04:39)
[2023-03-04] MEDS: SODIUM CHLOR 0.9% PF (SALINE LOCK) 10ML VIAL/SYR IV SCH ×3 (04:40→21:27)
[2023-03-04 05:00] VITALS: BP 170/86
[2023-03-04 05:45] LABS: Basophils # (auto) 0 10 ^3/uL (0-0.2); Basophils % (auto) 0.5 % (0.0-2.0); Eosinophils # (auto) 0.3 10 ^3/uL (0-0.8); Eosinophils % (auto) 6.8 % (0.0-7.0); Lymphocytes # (auto) 1.1 10 ^3/uL (0.4-5.4); Lymphocytes % (auto) 22.6 % (10.0-50.0); Mean Corpuscular Hemoglobin 32.9 pg (28.0-32.0); Mean Corpuscular Hgb Conc. 35.7 g/dL (32.0-36.0); Mean Corpuscular Volume 92.2 fL (80.0-100.0); Monocytes # (auto) 0.4 10 ^3/uL (0-1.3); Neutrophils # (auto) 2.9 10 ^3/uL (1.6-8.6); Neutrophils % (auto) 61.1 % (37.0-80.0); Nucleated Red Blood Cells % 0.1 %; Red Blood Cells 3.04 10^6/uL (4.5-5.90); Red Cell Distribution Width 12.7 % (11.8-14.3); White Blood Cell 4.8 10^3/uL (4.4-10.8)
[2023-03-04 05:51] LABS: BUN/Creatinine Ratio 21.7 (10.0-20.0); Calcium 9.6 mg/dL (8.5-10.1)
[2023-03-04] MEDS: ACCU-CHEK COMFORT CURVE STRIP VI SCH ×4 (06:44→21:27)
[2023-03-04] MEDS: InsuLIN REG 1unit/0.01ml Soln (100units/ml) SC SCH ×4 (06:54→21:27)
[2023-03-04] MEDS ORDERED: SODIUM CHL 0.9% 1000 ML BAG XX ONE (07:00)
[2023-03-04] MEDS: SEVELAMER 800 MG TAB PO SCH ×3 (07:52→18:51)
[2023-03-04] MEDS: MORPHINE SULFATE INJ 2 MG/ml SYRG IV PRN ×2 (08:04→13:09)
[2023-03-04 08:05] VITALS: BP 174/66
[2023-03-04 08:30] VITALS: BP 174/66
[2023-03-04] MEDS: B-COMPLEX W/ C & FOLIC ACID(NEPHROVITE TAB) PO SCH (09:12)
[2023-03-04] MEDS: CARVEDILOL 12.5 MG TAB PO SCH ×2 (09:13→21:56)
[2023-03-04] MEDS: ASPirin 81 mg TAB PO SCH (09:13)
[2023-03-04] MEDS: LOSARTAN POTASSIUM 25 MG TAB PO SCH ×2 (09:14→12:58)
[2023-03-04] MEDS: amLODIPine BESYLATE 5 MG TAB PO SCH ×2 (09:15→12:58)
[2023-03-04 12:30] VITALS: BP 144/93
[2023-03-04] MEDS: DOXYCYCLINE 100MG/250ML 250 ML IV SCH ×2 (14:10→21:56)
[2023-03-04] MEDS: CEFEPIME 1GM/ 50ML 50 ML IV SCH (16:25)
[2023-03-04 17:22] VITALS: BP 169/70
[2023-03-04 22:00] VITALS: BP 163/79
[2023-03-04] MEDS: IPRATROPIUM BROM 0.5 MG/2.5ML INH SOL NEB PRN (22:10)
[2023-03-04] MEDS: ALBUTEROL SULF 2.5 MG/0.5ML(0.5%) NEB SOLN NEB PRN (22:10)
[2023-03-05] VITALS (7 sets, daily range): BP systolic 136–178; BP diastolic 54–85
[2023-03-05] MEDS: hydrALAZINE HCL 25 MG TAB PO SCH ×3 (05:47→21:54)
[2023-03-05] MEDS: SODIUM CHLOR 0.9% PF (SALINE LOCK) 10ML VIAL/SYR IV SCH ×3 (05:47→21:24)
[2023-03-05] MEDS: InsuLIN REG 1unit/0.01ml Soln (100units/ml) SC SCH ×4 (05:59→21:24)
[2023-03-05] MEDS: ACCU-CHEK COMFORT CURVE STRIP VI SCH ×4 (06:00→21:24)
[2023-03-05 06:03] LABS: Basophils # (auto) 0 10 ^3/uL (0-0.2); Basophils % (auto) 0.5 % (0.0-2.0); Eosinophils # (auto) 0.2 10 ^3/uL (0-0.8); Eosinophils % (auto) 3.1 % (0.0-7.0); Hematocrit 33.1 % (41.0-53.0); Hemoglobin 11.4 g/dL (13.5-17.5); Lymphocytes # (auto) 1.4 10 ^3/uL (0.4-5.4); Lymphocytes % (auto) 19.9 % (10.0-50.0); Mean Corpuscular Hemoglobin 31.8 pg (28.0-32.0); Mean Corpuscular Hgb Conc. 34.4 g/dL (32.0-36.0); Mean Corpuscular Volume 92.4 fL (80.0-100.0); Monocytes # (auto) 0.9 10 ^3/uL (0-1.3); Monocytes % (auto) 13.6 % (0.0-12.0); Neutrophils # (auto) 4.3 10 ^3/uL (1.6-8.6); Neutrophils % (auto) 62.9 % (37.0-80.0); Nucleated Red Blood Cells % 0.2 %; Red Blood Cells 3.58 10^6/uL (4.5-5.90); Red Cell Distribution Width 15.2 % (11.8-14.3); White Blood Cell 6.9 10^3/uL (4.4-10.8)
[2023-03-05 06:21] LABS: Calcium 9.2 mg/dL (8.5-10.1)
[2023-03-05 06:24] LABS: BUN/Creatinine Ratio 3.4 (10.0-20.0)
[2023-03-05] MEDS ORDERED: SODIUM CHL 0.9% 1000 ML BAG XX ONE (07:00)
[2023-03-05] MEDS: SEVELAMER 800 MG TAB PO SCH ×2 (08:12→17:21)
[2023-03-05] MEDS: DOXYCYCLINE 100MG/250ML 250 ML IV SCH (08:30)
[2023-03-05] MEDS: B-COMPLEX W/ C & FOLIC ACID(NEPHROVITE TAB) PO SCH (09:31)
[2023-03-05] MEDS: ASPirin 81 mg TAB PO SCH (09:31)
[2023-03-05] MEDS: CARVEDILOL 12.5 MG TAB PO SCH ×2 (09:32→21:54)
[2023-03-05] MEDS: LOSARTAN POTASSIUM 25 MG TAB PO SCH (10:00)
[2023-03-05] MEDS: CEFEPIME 1GM/ 50ML 50 ML IV SCH (11:11)
[2023-03-05] MEDS: MORPHINE SULFATE INJ 2 MG/ml SYRG IV PRN ×2 (11:20→19:53)
[2023-03-05] MEDS: amLODIPine BESYLATE 5 MG TAB PO SCH (17:21)
[2023-03-05] MEDS: ALBUTEROL SULF 2.5 MG/0.5ML(0.5%) NEB SOLN NEB PRN (18:06)
[2023-03-05] MEDS: IPRATROPIUM BROM 0.5 MG/2.5ML INH SOL NEB PRN (18:06)
[2023-03-05] MEDS: LACTULOSE 20Gm/30ML SOLN PO PRN (18:40)
[2023-03-05] MEDS: hydrALAZINE HCL 20 MG/ML VL IV PRN (18:41)
[2023-03-06] MEDS: hydrALAZINE HCL 20 MG/ML VL IV PRN (00:53)
[2023-03-06] MEDS: ALBUTEROL SULF 2.5 MG/0.5ML(0.5%) NEB SOLN NEB PRN ×2 (01:02→15:59)
[2023-03-06] MEDS: IPRATROPIUM BROM 0.5 MG/2.5ML INH SOL NEB PRN ×2 (01:02→15:59)
[2023-03-06] MEDS: SODIUM CHLOR 0.9% PF (SALINE LOCK) 10ML VIAL/SYR IV SCH ×3 (05:41→21:32)
[2023-03-06] MEDS: hydrALAZINE HCL 25 MG TAB PO SCH ×3 (05:41→21:33)
[2023-03-06] MEDS: InsuLIN REG 1unit/0.01ml Soln (100units/ml) SC SCH ×4 (06:02→21:40)
[2023-03-06] MEDS: ACCU-CHEK COMFORT CURVE STRIP VI SCH ×4 (06:02→21:33)
[2023-03-06 06:17] LABS: Basophils # (auto) 0.1 10 ^3/uL (0-0.2); Basophils % (auto) 0.8 % (0.0-2.0); Eosinophils # (auto) 0.3 10 ^3/uL (0-0.8); Eosinophils % (auto) 3.9 % (0.0-7.0); Hematocrit 32.6 % (41.0-53.0); Hemoglobin 11.3 g/dL (13.5-17.5); Lymphocytes # (auto) 1.4 10 ^3/uL (0.4-5.4); Lymphocytes % (auto) 17.8 % (10.0-50.0); Mean Corpuscular Hemoglobin 31.9 pg (28.0-32.0); Mean Corpuscular Hgb Conc. 34.7 g/dL (32.0-36.0); Mean Corpuscular Volume 91.9 fL (80.0-100.0); Monocytes # (auto) 1.1 10 ^3/uL (0-1.3); Monocytes % (auto) 14.8 % (0.0-12.0); Neutrophils # (auto) 4.8 10 ^3/uL (1.6-8.6); Neutrophils % (auto) 62.7 % (37.0-80.0); Nucleated Red Blood Cells % 0.1 %; Red Blood Cells 3.54 10^6/uL (4.5-5.90); Red Cell Distribution Width 15.6 % (11.8-14.3); White Blood Cell 7.7 10^3/uL (4.4-10.8)
[2023-03-06 06:33] LABS: Calcium 9.5 mg/dL (8.5-10.1); Potassium 4.2 mmol/L (3.5-5.1)
[2023-03-06 08:00] VITALS: BP 161/86
[2023-03-06] MEDS: SEVELAMER 800 MG TAB PO SCH ×3 (08:21→18:21)
[2023-03-06] MEDS: cefTRIAXone 1GM/50ML D5W 50 ML IV SCH (08:21)
[2023-03-06 09:00] VITALS: BP 161/86
[2023-03-06] MEDS ORDERED: SODIUM CHL 0.9% 1000 ML BAG XX ONE (10:45)
[2023-03-06 13:00] VITALS: BP 129/64
[2023-03-06] MEDS: MORPHINE SULFATE INJ 2 MG/ml SYRG IV PRN (13:36)
[2023-03-06] MEDS ORDERED: methylPREDNISolone SOD SUCC 40 MG/ML VL IV ONE (15:00)
[2023-03-06] MEDS ORDERED: NICOTINE 14 MG/24HR TOPICAL PATCH TD ONE (15:00)
[2023-03-06] MEDS: B-COMPLEX W/ C & FOLIC ACID(NEPHROVITE TAB) PO SCH (16:15)
[2023-03-06] MEDS: ASPirin 81 mg TAB PO SCH (16:16)
[2023-03-06] MEDS: CARVEDILOL 12.5 MG TAB PO SCH ×2 (16:16→21:33)
[2023-03-06] MEDS: LOSARTAN POTASSIUM 50 MG TAB PO SCH (16:17)
[2023-03-06] MEDS: amLODIPine BESYLATE 5 MG TAB PO SCH (16:18)
[2023-03-06 17:23] VITALS: BP 135/72
[2023-03-06] MEDS: DOCUSATE SOD 100 MG CAP PO PRN (19:26)
[2023-03-06 21:31] VITALS: BP 164/83
[2023-03-06] MEDS: ATORVASTATIN 20 MG TAB PO SCH (21:33)
[2023-03-06] MEDS: diphenhdrAMINE HCL 50 MG/1 ML VL IV SCH (22:11)
[2023-03-06] MEDS: FAMOTIDINE (10MG/ML) 2ML VL IV SCH (22:11)
[2023-03-07] VITALS (10 sets, daily range): BP systolic 117–209; BP diastolic 81–107
[2023-03-07] MEDS: hydrALAZINE HCL 25 MG TAB PO SCH ×3 (05:11→22:12)
[2023-03-07] MEDS: SODIUM CHLOR 0.9% PF (SALINE LOCK) 10ML VIAL/SYR IV SCH ×3 (05:11→22:15)
[2023-03-07 05:33] LABS: Basophils # (auto) 0.1 10 ^3/uL (0-0.2); Basophils % (auto) 0.7 % (0.0-2.0); Eosinophils # (auto) 0 10 ^3/uL (0-0.8); Hematocrit 34.7 % (41.0-53.0); Lymphocytes # (auto) 0.6 10 ^3/uL (0.4-5.4); Lymphocytes % (auto) 8.1 % (10.0-50.0); Mean Corpuscular Hemoglobin 32.1 pg (28.0-32.0); Mean Corpuscular Hgb Conc. 34.6 g/dL (32.0-36.0); Mean Corpuscular Volume 92.7 fL (80.0-100.0); Monocytes # (auto) 0.2 10 ^3/uL (0-1.3); Monocytes % (auto) 3.2 % (0.0-12.0); Neutrophils # (auto) 6.6 10 ^3/uL (1.6-8.6); Nucleated Red Blood Cells % 0.1 %; Red Blood Cells 3.75 10^6/uL (4.5-5.90); Red Cell Distribution Width 15.4 % (11.8-14.3); White Blood Cell 7.5 10^3/uL (4.4-10.8)
[2023-03-07] MEDS: ACCU-CHEK COMFORT CURVE STRIP VI SCH ×4 (05:37→22:11)
[2023-03-07] MEDS: InsuLIN REG 1unit/0.01ml Soln (100units/ml) SC SCH ×4 (05:38→22:08)
[2023-03-07 05:45] LABS: BUN/Creatinine Ratio 4.6 (10.0-20.0); Calcium 9.3 mg/dL (8.5-10.1); Potassium 4.9 mmol/L (3.5-5.1)
[2023-03-07 05:46] LABS: INR 1.05 (0.9-1.15); Partial Thromboplastin Time 27.4 sec (24.6-33.4)
[2023-03-07] MEDS ORDERED: methylPREDNISolone SOD SUCC 40 MG/ML VL IV ONE (08:00)
[2023-03-07] MEDS: SEVELAMER 800 MG TAB PO SCH ×3 (08:00→19:54)
[2023-03-07] MEDS ORDERED: fentaNYL CITRATE 100 MCG/2 ML VL ONE ×2 (08:57→10:22)
[2023-03-07] MEDS ORDERED: MIDAZOLAM HCL 2MG/2ML 2ml VIAL (1mg/ml) ONE ×2 (08:57→10:22)
[2023-03-07] MEDS ORDERED: ANGIOMAX 250 MG VIAL IV ONE (08:57)
[2023-03-07] MEDS ORDERED: IODIXANOL 320MG/ML 100ML BTL IV ONE (08:58)
[2023-03-07] MEDS ORDERED: SODIUM CHL 0.9% 50 ML ONE (08:58)
[2023-03-07] MEDS: cefTRIAXone 1GM/50ML D5W 50 ML IV SCH (09:00)
[2023-03-07] MEDS ORDERED: methylPREDNISolone SOD SUCC 125 MG/2 ML VL ONE (09:06)
[2023-03-07] MEDS ORDERED: IOHEXOL 350 MG/ML 500ML BOTTLE IJ ONE (09:06)
[2023-03-07] MEDS ORDERED: FAMOTIDINE (10MG/ML) 2ML VL IV ONE (09:07)
[2023-03-07] MEDS ORDERED: diphenhdrAMINE HCL 50 MG/1 ML VL ONE (09:07)
[2023-03-07] MEDS ORDERED: hydrALAZINE HCL 20 MG/ML VL ONE ×2 (09:31→11:07)
[2023-03-07] MEDS: LOSARTAN POTASSIUM 50 MG TAB PO SCH (10:00)
[2023-03-07] MEDS: CARVEDILOL 12.5 MG TAB PO SCH ×2 (10:00→22:13)
[2023-03-07] MEDS: diphenhdrAMINE HCL 50 MG/1 ML VL IV SCH (10:00)
[2023-03-07] MEDS: NICOTINE 14 MG/24HR TOPICAL PATCH TD SCH (10:00)
[2023-03-07] MEDS: amLODIPine BESYLATE 5 MG TAB PO SCH (10:00)
[2023-03-07] MEDS: ASPirin 81 mg TAB PO SCH (10:00)
[2023-03-07] MEDS: B-COMPLEX W/ C & FOLIC ACID(NEPHROVITE TAB) PO SCH (10:00)
[2023-03-07] MEDS: FAMOTIDINE (10MG/ML) 2ML VL IV SCH (10:00)
[2023-03-07] MEDS ORDERED: NITROGLYCERIN 5MG/ML 10ML VIAL IV ONE (10:09)
[2023-03-07] MEDS ORDERED: VERAPAMIL 2.5MG/ML INJ 2ML VIAL IV ONE (10:10)
[2023-03-07] MEDS ORDERED: cloNIDine HCL 0.1 MG TAB PO PRN (12:00)
[2023-03-07] MEDS: ATORVASTATIN 20 MG TAB PO SCH (22:13)
[2023-03-07] MEDS: MORPHINE SULFATE INJ 2 MG/ml SYRG IV PRN (22:26)
[2023-03-07] MEDS: IPRATROPIUM BROM 0.5 MG/2.5ML INH SOL NEB PRN (23:43)
[2023-03-07] MEDS: ALBUTEROL SULF 2.5 MG/0.5ML(0.5%) NEB SOLN NEB PRN (23:43)
[2023-03-08 05:00] VITALS: BP 185/88
[2023-03-08] MEDS: SODIUM CHLOR 0.9% PF (SALINE LOCK) 10ML VIAL/SYR IV SCH ×2 (06:10→17:04)
[2023-03-08] MEDS: hydrALAZINE HCL 25 MG TAB PO SCH ×2 (06:10→14:00)
[2023-03-08 06:30] LABS: Basophils # (auto) 0 10 ^3/uL (0-0.2); Basophils % (auto) 0.1 % (0.0-2.0); Eosinophils # (auto) 0 10 ^3/uL (0-0.8); Hematocrit 36.7 % (41.0-53.0); Hemoglobin 12.6 g/dL (13.5-17.5); Lymphocytes # (auto) 0.6 10 ^3/uL (0.4-5.4); Lymphocytes % (auto) 5.8 % (10.0-50.0); Mean Corpuscular Hemoglobin 31.9 pg (28.0-32.0); Mean Corpuscular Hgb Conc. 34.2 g/dL (32.0-36.0); Mean Corpuscular Volume 93.3 fL (80.0-100.0); Monocytes # (auto) 0.7 10 ^3/uL (0-1.3); Monocytes % (auto) 6.6 % (0.0-12.0); Neutrophils # (auto) 9.2 10 ^3/uL (1.6-8.6); Neutrophils % (auto) 87.5 % (37.0-80.0); Nucleated Red Blood Cells % 0.2 %; Red Blood Cells 3.94 10^6/uL (4.5-5.90); Red Cell Distribution Width 15.8 % (11.8-14.3); White Blood Cell 10.6 10^3/uL (4.4-10.8)
[2023-03-08 06:39] LABS: Calcium 9.7 mg/dL (8.5-10.1)
[2023-03-08] MEDS: ACCU-CHEK COMFORT CURVE STRIP VI SCH ×3 (06:41→17:00)
[2023-03-08] MEDS: InsuLIN REG 1unit/0.01ml Soln (100units/ml) SC SCH ×3 (06:42→17:00)
[2023-03-08 06:52] LABS: Potassium 5.9 mmol/L (3.5-5.1)
[2023-03-08] MEDS: IPRATROPIUM BROM 0.5 MG/2.5ML INH SOL NEB PRN (06:58)
[2023-03-08] MEDS: ALBUTEROL SULF 2.5 MG/0.5ML(0.5%) NEB SOLN NEB PRN (06:58)
[2023-03-08] MEDS ORDERED: SODIUM ZIRCONIUM CYCL 10 GM PAK PO ONE (07:15)
[2023-03-08 08:26] VITALS: BP 155/77
[2023-03-08] MEDS: SEVELAMER 800 MG TAB PO SCH ×3 (08:26→18:00)
[2023-03-08] MEDS ORDERED: SODIUM CHL 0.9% 1000 ML BAG XX ONE (08:30)
[2023-03-08] MEDS: NICOTINE 14 MG/24HR TOPICAL PATCH TD SCH (09:25)
[2023-03-08] MEDS: CARVEDILOL 12.5 MG TAB PO SCH (09:26)
[2023-03-08] MEDS: B-COMPLEX W/ C & FOLIC ACID(NEPHROVITE TAB) PO SCH (09:26)
[2023-03-08] MEDS: ASPirin 81 mg TAB PO SCH (09:26)
[2023-03-08] MEDS: amLODIPine BESYLATE 5 MG TAB PO SCH (09:27)
[2023-03-08] MEDS: LOSARTAN POTASSIUM 50 MG TAB PO SCH (09:27)
[2023-03-08] MEDS: cefTRIAXone 1GM/50ML D5W 50 ML IV SCH (09:39)
[2023-03-08] MEDS ORDERED: CHLORHEXIDINE 4% TOPICAL soln 118ml TOP SCH (10:00)
[2023-03-08] MEDS ORDERED: POVIDONE IODINE 10 % TOPICAL OINT 30GM TOP SCH (10:00)
[2023-03-08] MEDS ORDERED: AML5T PO (10:50)
[2023-03-08] MEDS ORDERED: ATOR20TA50 PO (10:50)
[2023-03-08] MEDS ORDERED: DOX100T GT (10:50)
[2023-03-08] MEDS ORDERED: HYDR25TA87 PO (10:50)
[2023-03-08] MEDS ORDERED: CAR125T PO (10:50)
[2023-03-08 12:58] VITALS: BP 145/70
[2023-03-08 13:00] VITALS: BP 166/86
[2023-03-08 17:00] VITALS: BP 156/83
== END 2023-03-08 18:30 | disposition home or self-care (01) | DRG 270 ==
LOC: EDBD 00:16 → ER 00:16 → TELE 06:25 → TELE-EAST 22:38
PROVIDERS: ADMIT Nurse Practitioner Family; ATTEND Internal Medicine Pulmonary Disease
PROC: 5A1D70Z Performance of Urinary Filtration, Intermittent, Less than 6 Hours Per Day (ICD-10-PCS; 2023-03-02)
PROC: 5A1D70Z Performance of Urinary Filtration, Intermittent, Less than 6 Hours Per Day (ICD-10-PCS; 2023-03-04)
PROC: 5A1D70Z Performance of Urinary Filtration, Intermittent, Less than 6 Hours Per Day (ICD-10-PCS; 2023-03-06)
PROC: 04CT3ZZ Extirpation of Matter from Right Peroneal Artery, Percutaneous Approach (ICD-10-PCS; principal; 2023-03-07)
PROC: 047T3ZZ Dilation of Right Peroneal Artery, Percutaneous Approach (ICD-10-PCS; 2023-03-07)
PROC: 047R3ZZ Dilation of Right Posterior Tibial Artery, Percutaneous Approach (ICD-10-PCS; 2023-03-07)
PROC: 047K3ZZ Dilation of Right Femoral Artery, Percutaneous Approach (ICD-10-PCS; 2023-03-07)
PROC: B41G1ZZ Fluoroscopy of Left Lower Extremity Arteries using Low Osmolar Contrast (ICD-10-PCS; 2023-03-07)
PROC: B41F1ZZ Fluoroscopy of Right Lower Extremity Arteries using Low Osmolar Contrast (ICD-10-PCS; 2023-03-07)
PROC: 5A1D70Z Performance of Urinary Filtration, Intermittent, Less than 6 Hours Per Day (ICD-10-PCS; 2023-03-08)
DX: E11.51 Type 2 diabetes mellitus with diabetic peripheral angiopathy without gangrene (principal); I50.33 Acute on chronic diastolic (congestive) heart failure; N18.6 End stage renal disease; I13.2 Hypertensive heart and chronic kidney disease with heart failure and with stage 5 chronic kidney disease, or end stage renal disease; E87.1 Hypo-osmolality and hyponatremia; N25.81 Secondary hyperparathyroidism of renal origin; E11.628 Type 2 diabetes mellitus with other skin complications; I16.0 Hypertensive urgency; D64.9 Anemia, unspecified; E11.65 Type 2 diabetes mellitus with hyperglycemia; K59.00 Constipation, unspecified; L08.9 Local infection of the skin and subcutaneous tissue, unspecified; L97.519 Non-pressure chronic ulcer of other part of right foot with unspecified severity; E11.22 Type 2 diabetes mellitus with diabetic chronic kidney disease; B96.20 Unspecified Escherichia coli [E. coli] as the cause of diseases classified elsewhere; R09.89 Other specified symptoms and signs involving the circulatory and respiratory systems; R74.8 Abnormal levels of other serum enzymes; R79.89 Other specified abnormal findings of blood chemistry; S92.912A Unspecified fracture of left toe(s), initial encounter for closed fracture; Z20.822 Contact with and (suspected) exposure to COVID-19; X58.XXXA Exposure to other specified factors, initial encounter; J45.909 Unspecified asthma, uncomplicated; Z91.041 Radiographic dye allergy status; Z91.013 Allergy to seafood; Z71.6 Tobacco abuse counseling; Z82.49 Family history of ischemic heart disease and other diseases of the circulatory system; Z87.891 Personal history of nicotine dependence; Z82.5 Family history of asthma and other chronic lower respiratory diseases; Z83.3 Family history of diabetes mellitus; Z99.2 Dependence on renal dialysis; Y93.89 Activity, other specified; Y92.89 Other specified places as the place of occurrence of the external cause; Y99.8 Other external cause status
CPT/HCPCS: 36415; 37224; 37229; 71045; 73630; 75716; 80048; 80053; 80307; 80320; 81001; 82010; 82553; 82962; 83036; 83690; 83880; 83930; 84484; 84550; 85025; 85610; 85730; 87077; 87081; 87186; 87205; 87340; 87426; 90935; 93005; 93306; 93925; 94640; 96374; 96375; 96376; G0378; J0696; J1642; J1815; J2250; J2405; J3490; Q9967

== ENCOUNTER 2023-04-05 17:34 | Inpatient (IN) | payer MEDICARE, MEDICAID ==
[~2023-04-05] VITALS: Ht 172.7 cm; Wt 86.3 kg
[~2023-04-05 17:34] MED LIST changes: +AML5T PO; +ATOR20TA50 PO; -B-COTAB59 PO; +CAR125T PO; +HYDR25TA87 PO; -PRE5T PO
[2023-04-05 23:45] LABS: Basophils # (auto) 0.1 10 ^3/uL (0-0.2); Basophils % (auto) 0.9 % (0.0-2.0); Eosinophils # (auto) 0.2 10 ^3/uL (0-0.8); Eosinophils % (auto) 1.6 % (0.0-7.0); Hematocrit 37.2 % (41.0-53.0); Hemoglobin 12.7 g/dL (13.5-17.5); Lymphocytes # (auto) 1.1 10 ^3/uL (0.4-5.4); Lymphocytes % (auto) 10.5 % (10.0-50.0); Mean Corpuscular Hemoglobin 32.6 pg (28.0-32.0); Mean Corpuscular Volume 95.8 fL (80.0-100.0); Monocytes # (auto) 1.1 10 ^3/uL (0-1.3); Monocytes % (auto) 10.6 % (0.0-12.0); Neutrophils # (auto) 7.8 10 ^3/uL (1.6-8.6); Neutrophils % (auto) 76.4 % (37.0-80.0); Nucleated Red Blood Cells % 0.1 %; Red Blood Cells 3.88 10^6/uL (4.5-5.90); White Blood Cell 10.2 10^3/uL (4.4-10.8)
[2023-04-05 23:48] LABS: Albumin 3.5 g/dL (3.4-5.0); Calcium 9.3 mg/dL (8.5-10.1); Potassium 4.9 mmol/L (3.5-5.1)
[2023-04-05 23:58] LABS: BUN/Creatinine Ratio 4.4 (10.0-20.0); Bilirubin, Total 0.4 mg/dL (0.2-1.0); CRP High Sensitivity 0.41 mg/dL (< 0.3); Total Protein 9.1 g/dL (6.4-8.2)
[2023-04-06] MEDS ORDERED: HYDROmorphone HCL 2 MG/ML VL/or syr IV ONE (01:00)
[2023-04-06] MEDS ORDERED: DOCUSATE SOD 100 MG CAP PO PRN (06:30)
[2023-04-06] MEDS ORDERED: ACETAMINOPHEN 325 MG TAB PO PRN (06:30)
[2023-04-06] MEDS ORDERED: DEXTROSE (50%) 50ML SYRG IV PRN (06:30)
[2023-04-06] MEDS: ACCU-CHEK COMFORT CURVE STRIP VI SCH ×4 (06:58→23:08)
[2023-04-06] MEDS: InsuLIN REG 1unit/0.01ml Soln (100units/ml) SC SCH ×4 (06:58→23:10)
[2023-04-06] MEDS ORDERED: NITROGLYCERIN 0.4 MG SL TAB SL PRN (07:00)
[2023-04-06 07:43] LABS: Basophils # (auto) 0.2 10 ^3/uL (0-0.2); Basophils % (auto) 2.7 % (0.0-2.0); Eosinophils # (auto) 0.3 10 ^3/uL (0-0.8); Eosinophils % (auto) 3.2 % (0.0-7.0); Hematocrit 34.7 % (41.0-53.0); Hemoglobin 11.7 g/dL (13.5-17.5); Lymphocytes # (auto) 1.3 10 ^3/uL (0.4-5.4); Mean Corpuscular Hemoglobin 32.2 pg (28.0-32.0); Mean Corpuscular Hgb Conc. 33.8 g/dL (32.0-36.0); Mean Corpuscular Volume 95.2 fL (80.0-100.0); Monocytes % (auto) 11.3 % (0.0-12.0); Neutrophils # (auto) 6.3 10 ^3/uL (1.6-8.6); Neutrophils % (auto) 68.8 % (37.0-80.0); Red Blood Cells 3.64 10^6/uL (4.5-5.90); Red Cell Distribution Width 15.2 % (11.8-14.3); White Blood Cell 9.2 10^3/uL (4.4-10.8)
[2023-04-06] MEDS: SEVELAMER 800 MG TAB PO SCH ×3 (07:53→18:09)
[2023-04-06] MEDS: HYDROmorphone HCL 2 MG/ML VL/or syr IV PRN ×3 (07:59→20:48)
[2023-04-06 08:09] LABS: Albumin 3.1 g/dL (3.4-5.0); Calcium 8.7 mg/dL (8.5-10.1); Potassium 4.5 mmol/L (3.5-5.1)
[2023-04-06 08:13] LABS: BUN/Creatinine Ratio 4.5 (10.0-20.0); Bilirubin, Total 0.3 mg/dL (0.2-1.0); Total Protein 7.6 g/dL (6.4-8.2)
[2023-04-06] MEDS ORDERED: SODIUM CHL 0.9% 1000 ML BAG XX ONE (08:15)
[2023-04-06 09:17] LABS: % Iron Saturation 22.5 % (20-55)
[2023-04-06] MEDS: FAMOTIDINE (10MG/ML) 2ML VL IV SCH (13:31)
[2023-04-06] MEDS: ASPirin 81 mg TAB PO SCH (13:32)
[2023-04-06] MEDS: B-COMPLEX W/ C & FOLIC ACID(NEPHROVITE TAB) PO SCH (13:32)
[2023-04-06] MEDS: CLOPIDOGREL BISULFATE 75 MG TAB PO SCH (13:32)
[2023-04-06] MEDS: CARVEDILOL 3.125 MG TAB PO SCH ×2 (13:34→23:09)
[2023-04-06] MEDS: amLODIPine BESYLATE 5 MG TAB PO SCH (13:34)
[2023-04-06] MEDS: ONDANSETRON HCL 4 MG/2 ML VIAL IV PRN (20:48)
[2023-04-06] MEDS: ATORVASTATIN 20 MG TAB PO SCH (23:09)
[2023-04-07] MEDS: HYDROcodone-ACET 5/325MG TAB PO PRN ×3 (00:14→20:01)
[2023-04-07 00:23] VITALS: BP 156/82
[2023-04-07] MEDS ORDERED: INSU1INJ4 SC (03:10)
[2023-04-07] MEDS ORDERED: ATOR40TA52 PO (03:10)
[2023-04-07] MEDS ORDERED: AMLO-496 PO (03:10)
[2023-04-07] MEDS ORDERED: CARV12.544 PO (03:10)
[2023-04-07] MEDS ORDERED: HYDR-4298 PO (03:10)
[2023-04-07] MEDS ORDERED: IPR002IS NEB (03:10)
[2023-04-07] MEDS ORDERED: BUME1TAB3 PO (03:10)
[2023-04-07] MEDS: HYDROmorphone HCL 2 MG/ML VL/or syr IV PRN ×5 (03:55→20:50)
[2023-04-07 05:58] LABS: Basophils # (auto) 0.1 10 ^3/uL (0-0.2); Basophils % (auto) 1.2 % (0.0-2.0); Eosinophils # (auto) 0.4 10 ^3/uL (0-0.8); Eosinophils % (auto) 4.6 % (0.0-7.0); Hematocrit 37.6 % (41.0-53.0); Hemoglobin 12.5 g/dL (13.5-17.5); Lymphocytes # (auto) 1.3 10 ^3/uL (0.4-5.4); Lymphocytes % (auto) 15.5 % (10.0-50.0); Mean Corpuscular Hemoglobin 31.8 pg (28.0-32.0); Mean Corpuscular Hgb Conc. 33.3 g/dL (32.0-36.0); Mean Corpuscular Volume 95.5 fL (80.0-100.0); Monocytes # (auto) 1.3 10 ^3/uL (0-1.3); Monocytes % (auto) 14.8 % (0.0-12.0); Neutrophils # (auto) 5.4 10 ^3/uL (1.6-8.6); Neutrophils % (auto) 63.9 % (37.0-80.0); Nucleated Red Blood Cells % 0.1 %; Red Blood Cells 3.94 10^6/uL (4.5-5.90); Red Cell Distribution Width 15.8 % (11.8-14.3); White Blood Cell 8.5 10^3/uL (4.4-10.8)
[2023-04-07] MEDS: InsuLIN REG 1unit/0.01ml Soln (100units/ml) SC SCH ×4 (06:16→21:51)
[2023-04-07] MEDS: ACCU-CHEK COMFORT CURVE STRIP VI SCH ×4 (06:16→21:51)
[2023-04-07 06:20] LABS: Potassium 4.7 mmol/L (3.5-5.1)
[2023-04-07 06:31] LABS: Albumin 3.2 g/dL (3.4-5.0); BUN/Creatinine Ratio 4.2 (10.0-20.0); Bilirubin, Total 0.4 mg/dL (0.2-1.0); Calcium 8.3 mg/dL (8.5-10.1); Total Protein 8.2 g/dL (6.4-8.2)
[2023-04-07] MEDS: B-COMPLEX W/ C & FOLIC ACID(NEPHROVITE TAB) PO SCH (08:01)
[2023-04-07] MEDS: ASPirin 81 mg TAB PO SCH (08:01)
[2023-04-07] MEDS: SEVELAMER 800 MG TAB PO SCH ×3 (08:01→18:24)
[2023-04-07] MEDS: CLOPIDOGREL BISULFATE 75 MG TAB PO SCH (08:02)
[2023-04-07] MEDS: amLODIPine BESYLATE 5 MG TAB PO SCH (08:02)
[2023-04-07] MEDS: CARVEDILOL 3.125 MG TAB PO SCH ×2 (08:03→21:46)
[2023-04-07 08:30] VITALS: BP 177/109
[2023-04-07 09:00] VITALS: BP 177/109
[2023-04-07] MEDS ORDERED: SEVE800T PO (14:39)
[2023-04-07] MEDS ORDERED: MILK OF MAGNESIA 30ML SUSP PO PRN (14:45)
[2023-04-07] MEDS ORDERED: VANCOMYCIN PER PHARMACY 0 MG IV SCH (15:00)
[2023-04-07] MEDS ORDERED: VANCOMYCIN 1GM/250ML 250 ML IV ONE (15:30)
[2023-04-07] MEDS ORDERED: NICOTINE 7MG/24HR TOPICAL PATCH TD ONE (16:00)
[2023-04-07 17:28] VITALS: BP 169/103
[2023-04-07] MEDS ORDERED: cloNIDine HCL 0.1 MG TAB PO PRN (18:15)
[2023-04-07] MEDS: hydrALAZINE HCL 25 MG TAB PO SCH (21:44)
[2023-04-07] MEDS: ATORVASTATIN 20 MG TAB PO SCH (21:45)
[2023-04-07 22:00] VITALS: BP 202/74
[2023-04-08] MEDS: HYDROmorphone HCL 2 MG/ML VL/or syr IV PRN ×4 (00:54→14:50)
[2023-04-08] MEDS: HYDROcodone-ACET 5/325MG TAB PO PRN ×2 (02:28→12:16)
[2023-04-08 05:00] VITALS: BP 168/75
[2023-04-08] MEDS: hydrALAZINE HCL 25 MG TAB PO SCH ×3 (05:45→22:34)
[2023-04-08] MEDS: InsuLIN REG 1unit/0.01ml Soln (100units/ml) SC SCH ×4 (06:02→22:39)
[2023-04-08] MEDS: ACCU-CHEK COMFORT CURVE STRIP VI SCH ×4 (06:02→22:34)
[2023-04-08] MEDS: SEVELAMER 800 MG TAB PO SCH ×3 (08:41→17:55)
[2023-04-08 09:00] VITALS: BP 179/101
[2023-04-08] MEDS: FAMOTIDINE (10MG/ML) 2ML VL IV SCH (09:49)
[2023-04-08] MEDS: amLODIPine BESYLATE 5 MG TAB PO SCH (09:51)
[2023-04-08] MEDS: ASPirin 81 mg TAB PO SCH (09:51)
[2023-04-08] MEDS: CARVEDILOL 3.125 MG TAB PO SCH ×2 (09:52→22:34)
[2023-04-08] MEDS: CLOPIDOGREL BISULFATE 75 MG TAB PO SCH (09:52)
[2023-04-08] MEDS: B-COMPLEX W/ C & FOLIC ACID(NEPHROVITE TAB) PO SCH (09:52)
[2023-04-08] MEDS: NICOTINE 7MG/24HR TOPICAL PATCH TD SCH (09:57)
[2023-04-08] MEDS ORDERED: levoFLOXacin 500MG 100 ML IV SCH (10:00)
[2023-04-08] MEDS: levoFLOXacin 500MG 100 ML IV SCH (10:06)
[2023-04-08] MEDS ORDERED: VANCOMYCIN 500 MG in D5W 5% 100 ML IV ONE (12:00)
[2023-04-08 13:00] VITALS: BP 181/99
[2023-04-08 16:51] VITALS: BP 184/93
[2023-04-08] MEDS: MORPHINE SULFATE INJ 2 MG/ml SYRG IV PRN ×2 (18:30→22:57)
[2023-04-08 22:00] VITALS: BP 126/63
[2023-04-08] MEDS: ATORVASTATIN 20 MG TAB PO SCH (22:33)
[2023-04-08] MEDS: GABAPENTIN 100 MG CAP PO SCH (22:33)
[2023-04-08] MEDS: ONDANSETRON HCL 4 MG/2 ML VIAL IV PRN (22:56)
[2023-04-09 05:00] VITALS: BP 128/77
[2023-04-09] MEDS: ONDANSETRON HCL 4 MG/2 ML VIAL IV PRN (05:45)
[2023-04-09] MEDS: MORPHINE SULFATE INJ 2 MG/ml SYRG IV PRN ×3 (05:45→22:08)
[2023-04-09] MEDS: ACCU-CHEK COMFORT CURVE STRIP VI SCH ×4 (05:46→22:07)
[2023-04-09] MEDS: hydrALAZINE HCL 25 MG TAB PO SCH ×3 (05:55→22:06)
[2023-04-09] MEDS: InsuLIN REG 1unit/0.01ml Soln (100units/ml) SC SCH ×4 (05:55→22:00)
[2023-04-09 06:13] LABS: Hematocrit 37.6 % (41.0-53.0); Hemoglobin 12.8 g/dL (13.5-17.5)
[2023-04-09 06:28] LABS: % Iron Saturation 13.1 % (20-55)
[2023-04-09] MEDS ORDERED: SODIUM CHL 0.9% 1000 ML BAG XX ONE ×2 (07:00)
[2023-04-09 09:00] VITALS: BP 121/82
[2023-04-09] MEDS: CLOPIDOGREL BISULFATE 75 MG TAB PO SCH (09:36)
[2023-04-09] MEDS: SEVELAMER 800 MG TAB PO SCH ×3 (09:36→16:57)
[2023-04-09] MEDS: ASPirin 81 mg TAB PO SCH (09:37)
[2023-04-09] MEDS: NICOTINE 7MG/24HR TOPICAL PATCH TD SCH (09:37)
[2023-04-09] MEDS: B-COMPLEX W/ C & FOLIC ACID(NEPHROVITE TAB) PO SCH (09:37)
[2023-04-09] MEDS: amLODIPine BESYLATE 5 MG TAB PO SCH (09:39)
[2023-04-09] MEDS: HYDROcodone-ACET 5/325MG TAB PO PRN ×2 (09:39→16:57)
[2023-04-09] MEDS: HYDROmorphone HCL 2 MG/ML VL/or syr IV PRN ×2 (09:43→09:44)
[2023-04-09] MEDS: CARVEDILOL 3.125 MG TAB PO SCH ×2 (09:50→22:07)
[2023-04-09 12:51] VITALS: BP 142/84
[2023-04-09] MEDS ORDERED: VANCOMYCIN 500 MG in D5W 5% 100 ML IV ONE (16:00)
[2023-04-09 16:44] VITALS: BP 113/81
[2023-04-09 22:00] VITALS: BP 170/80
[2023-04-09] MEDS ORDERED: GABAPENTIN 300 MG CAP PO SCH (22:00)
[2023-04-09] MEDS: GABAPENTIN 100 MG CAP PO SCH (22:06)
[2023-04-09] MEDS: ATORVASTATIN 20 MG TAB PO SCH (22:07)
[2023-04-10 05:00] VITALS: BP 92/52
[2023-04-10] MEDS: hydrALAZINE HCL 25 MG TAB PO SCH ×2 (06:14→15:47)
[2023-04-10] MEDS: ACCU-CHEK COMFORT CURVE STRIP VI SCH ×3 (06:14→17:00)
[2023-04-10] MEDS: MORPHINE SULFATE INJ 2 MG/ml SYRG IV PRN (06:16)
[2023-04-10] MEDS: InsuLIN REG 1unit/0.01ml Soln (100units/ml) SC SCH ×3 (06:37→17:00)
[2023-04-10 09:00] VITALS: BP 151/79
[2023-04-10] MEDS: NICOTINE 7MG/24HR TOPICAL PATCH TD SCH (10:00)
[2023-04-10] MEDS: SEVELAMER 800 MG TAB PO SCH ×3 (10:22→18:00)
[2023-04-10] MEDS: ASPirin 81 mg TAB PO SCH (10:23)
[2023-04-10] MEDS: CARVEDILOL 3.125 MG TAB PO SCH (10:24)
[2023-04-10] MEDS: amLODIPine BESYLATE 5 MG TAB PO SCH (10:25)
[2023-04-10] MEDS: B-COMPLEX W/ C & FOLIC ACID(NEPHROVITE TAB) PO SCH (10:25)
[2023-04-10] MEDS: CLOPIDOGREL BISULFATE 75 MG TAB PO SCH (10:26)
[2023-04-10] MEDS: levoFLOXacin 500MG 100 ML IV SCH (10:26)
[2023-04-10 13:00] VITALS: BP 147/82
[2023-04-10] MEDS: HYDROcodone-ACET 5/325MG TAB PO PRN (15:47)
[2023-04-10 16:53] VITALS: BP 147/82
== END 2023-04-10 19:18 | disposition home health service (06) | DRG 299 ==
LOC: ER 17:34 → TELE 04-06 06:48 → TELE-WESTW 04-06 23:38
PROVIDERS: ADMIT Nurse Practitioner Family; ATTEND Internal Medicine
PROC: 5A1D70Z Performance of Urinary Filtration, Intermittent, Less than 6 Hours Per Day (ICD-10-PCS; principal; 2023-04-06)
PROC: 5A1D70Z Performance of Urinary Filtration, Intermittent, Less than 6 Hours Per Day (ICD-10-PCS; 2023-04-08)
DX: E11.51 Type 2 diabetes mellitus with diabetic peripheral angiopathy without gangrene (principal); N18.6 End stage renal disease; L03.119 Cellulitis of unspecified part of limb; I13.2 Hypertensive heart and chronic kidney disease with heart failure and with stage 5 chronic kidney disease, or end stage renal disease; E87.1 Hypo-osmolality and hyponatremia; I50.30 Unspecified diastolic (congestive) heart failure; N25.81 Secondary hyperparathyroidism of renal origin; E11.621 Type 2 diabetes mellitus with foot ulcer; D63.1 Anemia in chronic kidney disease; F41.9 Anxiety disorder, unspecified; K21.9 Gastro-esophageal reflux disease without esophagitis; M89.8X9 Other specified disorders of bone, unspecified site; E11.22 Type 2 diabetes mellitus with diabetic chronic kidney disease; J45.909 Unspecified asthma, uncomplicated; L97.509 Non-pressure chronic ulcer of other part of unspecified foot with unspecified severity; E11.65 Type 2 diabetes mellitus with hyperglycemia; Z99.2 Dependence on renal dialysis; Z91.013 Allergy to seafood; Z88.8 Allergy status to other drugs, medicaments and biological substances; Z82.5 Family history of asthma and other chronic lower respiratory diseases; Z83.3 Family history of diabetes mellitus
CPT/HCPCS: 36415; 71045; 73630; 80053; 80202; 82565; 82728; 82962; 83036; 83540; 83550; 83605; 85014; 85018; 85025; 85652; 86141; 87081; 90935; 96374; 97110; 97163; 97530; G0378; J1642; J1815; J1956; J2405; J3490; J7060